=== PATIENT | female | born 1965 | race Caucasian/White ===

== ENCOUNTER → 2016-05-25 | Outpatient (CLI) | payer MEDICARE, MEDICAID ==
[~2016-05-25] MED LIST: ADVAIR 250/501 EA INH; ALBUTEROL0.09 MG/A2 IH; ALBUTEROL0.09 MG/A2 INH; ALBUTEROL0.63 MG/3; ALLERGY MED; AMOXICILLIN500 MG PO; AMOXIL250 MG/5 M PO; AMOXIL400 MG/5 M PO; AMOXIL500 MG PO; ATENOLOL-CHLORTHAL 5; AUGMENTIN 500 M1 TAB PO; AUGMENTIN ES-6050 ML PO; AUGMENTIN ES-6100 ML PO; BENADRYL; BENTYL10 MG PO; BREATHING TREATMENT; CIPRO500 MG PO; CIPRODEX 0.3%-7.5 ML OT; CLARITIN5 MG/5 ML PO; COMPAZINE10 MG PO; CYMBALTA60 M1 PO; DARVOCET N 1001 TAB PO; DIFLUCAN100 MG PO; FIORICET 325 MG1 TAB PO; FLEXERIL10 MG PO; HUMULIN SC; HYDR25T PO; HYDROCODONE BIT1 T11 PO; INSULIN 70/30 SC; IRON15 MG/1 ML PO; KEFLEX250 MG/5 M PO; KEFLEX500 MG PO; LEVAQUIN750 M1 PO; LEVAQUIN750 MG PO; LIDEX 0.05% CRE15 GM T; LISINOPRIL10 M1 PO; LISINOPRIL10 MG PO; LISINOPRIL40 MG PO; LISINOPRIL5 MG PO; MACROBID100 M1 PO; MIRALAX POWDER17 G1 PO; MOTRIN600 MG PO; MOTRIN800 MG PO; Motrin,Rufen800 MG PO; NORVASC2.5 MG PO; NORVASC5 MG PO; NOVOLOG 70/30 M10 ML SC; Nizoral 2%15 GM PO; OMNICEF250 MG/5 M PO; ORASONE20 MG PO; PEPCID20 MG PO; PHENERGAN25 M1 PO; PREDNISONE10 MG PO; PREDNISONE20 MG PO; PRELONE15 MG/5 ML; PRILOSEC20 MG PO; PRILOSEC40 M1 PO; PRILOSEC40 MG PO; PROAIR HFA0.09 MG/AC IH; Phenergan25 MG PO; ROBITUSSIN DM 101 OZ PO; ROBITUSSIN DM 105 ML PO; SUDAFED CH PO; SYMBICORT1 AE1 IH; TRAMADOL HCL50 MG PO; TRIMOX,POL250 MG/5 M PO; TUSSIN DM; TYLENOL160 MG/5 M PO; TYLENOL500 MG PO; ULTRAM50 MG PO; VENTOLIN 02.5 MG/3 M INH; VICODIN 5/500 505 MG PO; Vicodin 5/500 505 MG PO; ZANTAC150 MG PO; ZITHROMAX Z PA250 MG PO; ZOFRAN ODT4 MG PO; ZOFRAN ODT4 MG SL; ZOFRAN4 MG PO; ZOLOFT50 MG PO
--- NOTE | ~2016-05-25 | PR ---
[place], [place] PROGRESS NOTE NAME: ZAYRA MOTT [facility] #: [id number] UNIT #: [id number] ROOM: DOCTOR: GAVIN AugusteASAEL BIRTHDATE: [birth year] DOS: 05/25/2016 This is a patient who comes in for a chief complaint of an open area of her right lower extremity. HISTORY OF PRESENT ILLNESS: This is a 51-year-old female who has been to the [facility]ound Clinic before approximately about a year ago for ulcers of her legs. She comes in today accompanied by her boyfriend for a wound that she has had for approximately about a week of her right lower extremity on the lateral aspect of the leg. According to the patient and her boyfriend, it started out as a blister and she has been putting some dressing on it. She is not quite clear what they were using. Apparently, she says they got something from the pharmacy and were using some kind of antibiotic cream, but they really are not sure what it was. Her mom apparently lives with her and her mother apparently did put a dressing at one point, but she is not sure what it was. She is a very poor historian. PAST MEDICAL HISTORY: Significant for [id number] renal failure, anemia, arthritis, hypertension, severe ichthyosis and scaling of bilateral lower extremities, diabetes mellitus, obesity, severe malnutrition. PAST SURGICAL HISTORY: She is status post hand surgery, hip surgery, bilateral hip replacement, cholecystectomy. SOCIAL HISTORY: Does not drink alcohol. She is a past smoker. FAMILY HISTORY: Significant for hypertension and cirrhosis. ALLERGIES: To BEES, SULFA, ALPRAZOLAM, CODEINE, ERYTHROMYCIN, NAPROSYN, SERTRALINE, OPIOIDS and MORPHINE. MEDICATIONS: Lisinopril 40 daily, albuterol 2 puffs every 4 hours, Symbicort b.i.d., NovoLog 70/30, 40 units daily, iron sulfate 325 daily, and omeprazole 40 daily. She is a very poor historian. She offers no other specific complaints regarding the wound at this time. PHYSICAL EXAMINATION: VITAL SIGNS: Blood pressure is 130/88, pulse of 18, respirations 18, temperature is 98.6. WOUND EXAMINATION: Her legs are covered with diffuse thickened scales and she has dirt present on her feet and severe onychomycosis. Nails are extremely long. She would not agree to an YOU as she is unable to lay flat. I am able to, however, feel pulses of her right lower extremity, although it is somewhat difficult to feel. Her toes are slightly cool. There is capillary refill noted. She does have indurated edema in both of her lower extremities. Overall, hygiene is quite poor. The patient appears quite older than her stated age and has multiple teeth missing. There is an open wound present that has some foreign material present in the base of the wound that appears to be a [place], [place] PROGRESS NOTE NAME: ZAYRA MOTT UNIT #: [id number] ROOM: DOCTOR: ASAEL ALONSO M.D. BIRTHDATE: [birth year] dressing. The length is measuring 6, the width is 5.8, the depth is 0.1. There is a very minimal fibrin slough, but there is a lot of debris present in the base of the wound from this dressing which to me appears to be an alginate. The fibers are stuck in the wound. It is quite tender whenever attempting to even just examine the wound. The patient is not very cooperative with examination nor does she allow any extensive debridement. There is some surrounding erythema. It is mild, but the patient does complain of tenderness around the periwound as well, it is very mild. Some of the scales are once again noted as before. When I had seen her a year ago, these scales come off quite easily with washing her legs and they also are easily debrided off as well. I do not appreciate any other open wounds. She did agree to let me try to remove some of the foreign material with forceps. This was done very slowly over many, many minutes and several timeouts in between due to the patient's level of comfort repeated. Cetacaine spray was used for topical anesthesia. There was no bleeding. This is just a selective debridement to remove foreign material from the base of the wound. Post-debridement measurements are unchanged. ASSESSMENT AND PLAN: Ulcer of the right lower extremity secondary to probable edema. According to the patient, it started out as a blister and then opened up. It looks like they have been using an adherent type of dressing that has definitely adhered to the base of the wound that is causing discomfort and pain. There may be some slight cellulitis noted as well as there is a minimal tender erythema around the periwound as well. We will start the patient empirically on doxycycline 100 twice a day. She is not allergic to this medication. We will use Adaptic and honey to the base of the wound to help keep it clear from debris and Adaptic to help prevent any dressings from adhering to the base of the wound. The patient would not let us do ABIs today. When I had seen her in the past, arterial ultrasounds were ordered; however, the patient did not get this testing done. I did explain to her how important it is to have good personal hygiene and washing her legs is very important. Due to the discomfort with her wound, she refused to wash her legs upon arrival to the Wound Clinic today. I do not know if this patient will be able to care for her wound. She says her boyfriend will help her. However, she does seem to have some possible mental disability. She is on disability. I would like to have home health to try to come and help her with her dressings and to encourage good hygiene; however, she states that home health had refused to come to her house in the past due to pediculosis. We will see what we can do from our end. In the meantime, we will have the patient follow up in 1 week. She is diabetic, I do not know what her last hemoglobin A1c is. I will see if I can look this up. The patient has multiple medical problems, but does seem to be capable of making her own decision. She was able to call and make an appointment to come to the Wound Clinic today. Followup is in 1 week. [place], [place] PROGRESS NOTE NAME: ZAYRA MOTT [place] UNIT #: [id number] ROOM: DOCTOR: ASAEL ALONSO M.D. BIRTHDATE: [birth year] ASAEL ALONSO MD CM:PNTRANS [id number] ASAEL ALONSO M.D. 05/26/16 0942 interface
== END ==
LOC: WOUNDCARE 03:51
DX: E11.622 Type 2 diabetes mellitus with other skin ulcer (principal); L97.811 Non-pressure chronic ulcer of other part of right lower leg limited to breakdown of skin; I87.2 Venous insufficiency (chronic) (peripheral); M19.90 Unspecified osteoarthritis, unspecified site; E11.22 Type 2 diabetes mellitus with diabetic chronic kidney disease; I12.9 Hypertensive chronic kidney disease with stage 1 through stage 4 chronic kidney disease, or unspecified chronic kidney disease; N18.9 Chronic kidney disease, unspecified; B35.1 Tinea unguium; E66.9 Obesity, unspecified; Z90.49 Acquired absence of other specified parts of digestive tract; Z87.891 Personal history of nicotine dependence

== ENCOUNTER 2016-07-23 19:53 | Inpatient (IN) | payer MEDICARE, MEDICAID ==
[~2016-07-23] VITALS: Ht 165.1 cm; Wt 119.8 kg
[2016-07-23 20:01] VITALS: BP 132/85
[2016-07-23 20:18] LABS: BASO # 0.1 10*3/uL (0.0-0.1); EOS # 0.3 10*3/uL (0.0-0.4); HEMOGLOBIN 8.9 g/dl (12.0-16.0); MEAN CELL VOLUME 84.8 fl (81.0-99.0); MEAN CORPUSCULAR HGB CONC 30.7 g/dl (33.0-37.0); MONO # 0.5 10*3/uL (0.1-1.0); MONO % 7.4 % (3.0-9.0); NEUT # 4.2 10*3/uL (2.3-7.9); NEUT % 69.3 % (47.0-73.0); PLATELET COUNT AUTOMATED 284 10*3/uL (130-400); RED BLOOD COUNT 3.42 10*6/uL (4.10-5.10); RED CELL DISTRI WIDTH 15.9 % (0-14.5); WHITE BLOOD COUNT 6.1 10*3/uL (4.8-10.8)
[2016-07-23 20:28] LABS: INTERNATIONAL NORM RATIO 1.1 (2.0-3.5); PROTHROMBIN TIME 11.3 SECONDS (9.0-12.4)
[2016-07-23 20:34] LABS: ALBUMIN 2.2 gm/dl (3.1-4.5); ALKALINE PHOSPHATASE 114 U/L (45-117); BILIRUBIN, TOTAL 0.2 mg/dl (0.2-1.0); BUN 29 mg/dl (7-24); CARBON DIOXIDE 22 mmol/L (21-32); CHLORIDE 109 mmol/L (98-107); CPK 141 U/L (26-192); EST GLOM FILT AFRICAN AMERICAN 29 ml/min; GLUCOSE 159 mg/dL (65-99); MAGNESIUM 3.4 mg/dL (1.5-2.1); SGOT/AST 6 IU/L (3-35); SGPT/ALT 16 U/L (12-78); SODIUM 140 mmol/L (136-145); TOTAL PROTEIN 6.3 gm/dL (6.4-8.2)
[2016-07-23 20:35] LABS: TROPONIN I < 0.015 ng/ml (<0.045)
[2016-07-23 20:36] LABS: CKMB 5.7 ng/ml (0.5-3.6)
[2016-07-23 21:10] VITALS: BP 170/98
[2016-07-23 23:19] VITALS: BP 188/99
[2016-07-23] MEDS ORDERED: IRON325 M2 PO (23:59)
[2016-07-23] MEDS ORDERED: HYDRALAZINE HYD50 MG PO (23:59)
[2016-07-24] VITALS: BP 180/92
[2016-07-24] MEDS ORDERED: VITAMIN D1000 IU PO
[2016-07-24 04:00] VITALS: BP 178/76
[2016-07-24] MEDS ORDERED: PROCARDIA XL30 MG PO (07:13)
[2016-07-24] MEDS ORDERED: CATAPRES0.2 M1 PO (07:14)
[2016-07-24] MEDS ORDERED: PHENERGAN12.5 M2 RC (07:15)
[2016-07-24 07:51] LABS: BASO # 0.1 10*3/uL (0.0-0.1); BASO % 1.3 % (0.0-1.0); EOS # 0.3 10*3/uL (0.0-0.4); EOS % 4.3 % (1.0-4.0); HEMATOCRIT 29.3 % (37.0-47.0); HEMOGLOBIN 9.2 g/dl (12.0-16.0); LYMPH # 1.3 10*3/uL (1.3-4.4); LYMPH % 20.6 % (27.0-41.0); MEAN CELL VOLUME 84.2 fl (81.0-99.0); MEAN CORPUSCULAR HGB 26.4 pg (27.0-31.0); MEAN CORPUSCULAR HGB CONC 31.4 g/dl (33.0-37.0); MEAN PLATELET VOLUME 8.3 fl (9.6-12.3); MONO # 0.6 10*3/uL (0.1-1.0); NEUT % 64.5 % (47.0-73.0); PLATELET COUNT AUTOMATED 293 10*3/uL (130-400); RED BLOOD COUNT 3.48 10*6/uL (4.10-5.10); WHITE BLOOD COUNT 6.3 10*3/uL (4.8-10.8)
[2016-07-24 07:59] LABS: INTERNATIONAL NORM RATIO 1.1 (2.0-3.5); PROTHROMBIN TIME 11.3 SECONDS (9.0-12.4)
[2016-07-24 08:00] VITALS: BP 190/108
[2016-07-24 08:08] LABS: ALBUMIN 2.2 gm/dl (3.1-4.5); BILIRUBIN, TOTAL 0.3 mg/dl (0.2-1.0); MAGNESIUM 3.2 mg/dL (1.5-2.1); POTASSIUM 4.4 mmol/L (3.5-5.1); TOTAL PROTEIN 6.2 gm/dL (6.4-8.2)
[2016-07-24 08:09] LABS: FREE T4 0.76 ng/dl (0.76-1.46)
[2016-07-24 08:14] LABS: THYROID STIM HORMONE (HS) 1.73 uIU/ml (0.358-4.75)
[2016-07-24 08:27] LABS: HEMOGLOBIN A1c 6.3 % (4.8-5.6)
[2016-07-24 09:49] LABS: VITAMIN D, 25-HYDROXY 18.2 ng/mL (30-100)
[2016-07-24 09:50] LABS: FOLIC ACID 2.15 ng/mL (>5.38)
[2016-07-24] MEDS ORDERED: PROCARDIA10 MG PO (10:53)
== END 2016-07-24 13:22 | disposition home or self-care (01) | DRG 391 ==
LOC: ED 19:53 → EDHOLD 22:32 → 5E 22:43
PROVIDERS: Emergency Medicine; Internal Medicine Hospice and Palliative Medicine
DX: K21.9 Gastro-esophageal reflux disease without esophagitis (principal); E43 Unspecified severe protein-calorie malnutrition; N18.4 Chronic kidney disease, stage 4 (severe); Z68.41 Body mass index [BMI] 40.0-44.9, adult; F41.9 Anxiety disorder, unspecified; R07.89 Other chest pain; I12.9 Hypertensive chronic kidney disease with stage 1 through stage 4 chronic kidney disease, or unspecified chronic kidney disease; E11.22 Type 2 diabetes mellitus with diabetic chronic kidney disease; E66.9 Obesity, unspecified; I87.2 Venous insufficiency (chronic) (peripheral); E55.9 Vitamin D deficiency, unspecified; E53.8 Deficiency of other specified B group vitamins; D64.9 Anemia, unspecified; J44.9 Chronic obstructive pulmonary disease, unspecified; M19.90 Unspecified osteoarthritis, unspecified site; Z96.643 Presence of artificial hip joint, bilateral; Z90.49 Acquired absence of other specified parts of digestive tract; Z82.49 Family history of ischemic heart disease and other diseases of the circulatory system; Z83.3 Family history of diabetes mellitus; Z79.4 Long term (current) use of insulin; Z88.2 Allergy status to sulfonamides; Z88.6 Allergy status to analgesic agent; Z88.8 Allergy status to other drugs, medicaments and biological substances; Z91.018 Allergy to other foods; Z79.899 Other long term (current) drug therapy

== ENCOUNTER 2016-08-19 10:28 | Emergency (ER) | payer MEDICARE, MEDICAID ==
[~2016-08-19] VITALS: Ht 160 cm; Wt 113.4 kg
[2016-08-19 10:43] VITALS: BP 174/92
== END 2016-08-19 10:52 | disposition home or self-care (01) ==
LOC: ED 10:28
DX: S00.83XA Contusion of other part of head, initial encounter (principal); I10 Essential (primary) hypertension; F41.9 Anxiety disorder, unspecified; E11.9 Type 2 diabetes mellitus without complications; J44.9 Chronic obstructive pulmonary disease, unspecified; E66.9 Obesity, unspecified; Z88.6 Allergy status to analgesic agent; Z88.2 Allergy status to sulfonamides; Z88.8 Allergy status to other drugs, medicaments and biological substances; Z91.018 Allergy to other foods; Z79.899 Other long term (current) drug therapy; Z68.42 Body mass index [BMI] 45.0-49.9, adult; W07.XXXA Fall from chair, initial encounter; Y93.89 Activity, other specified; Y92.89 Other specified places as the place of occurrence of the external cause; Y99.8 Other external cause status

== ENCOUNTER → 2016-08-19 | Outpatient (CLI) | payer MEDICARE, MEDICAID ==
[~2016-08-19] MED LIST changes: +CATAPRES0.2 M1 PO; +HYDRALAZINE HYD50 MG PO; +IRON325 M2 PO; +PHENERGAN12.5 M2 RC; +PROCARDIA XL30 MG PO; +PROCARDIA10 MG PO; +VITAMIN D1000 IU PO
== END | disposition home or self-care (01) ==
LOC: US 07:20
DX: K76.0 Fatty (change of) liver, not elsewhere classified (principal); I10 Essential (primary) hypertension; Z90.49 Acquired absence of other specified parts of digestive tract

== ENCOUNTER 2016-08-22 15:26 | Inpatient (IN) | payer MEDICARE, MEDICAID ==
[~2016-08-22] VITALS: Ht 162.5 cm; Wt 111.3 kg
--- NOTE | ~2016-08-22 | PR ---
[place], [place] [id number] #: [id number] ROOM: 530 DOCTOR: MARISSA WEBB MD BIRTHDATE: [birth year] DOS: 08/27/2016 NEPHROLOGY PROGRESS NOTE SUBJECTIVE: No reported events overnight. No reports of acute chest pain, tolerating by mouth well. OBJECTIVE: VITAL SIGNS: 97.9, 81, 20, 144/83, and 96%. GENERAL: Older appearing in her stated age, morbidly obese, sitting at the side of the bed. Chronic lower extremity edema with elephantiasis and chronic skin changes. Chronic edema of the lower extremities are stable and slightly improved compared to admission. LUNGS: Decreased secondary to effort. CARDIOVASCULAR: Rate regular. No audible rub. ABDOMEN: Obese, soft, nontender. LABORATORY DATA AND DIAGNOSTICS: White blood cell count 5.5, hemoglobin 8.2, still not robust. She has been given transfusions on the and the of one unit each day. She was stable at 8.8 yesterday after transfusion, but dropped again to 8.2, was noted above. Platelets are 215 and holding. Sodium 139, potassium 5.0, chloride 108, bicarbonate 23, BUN 40, creatinine 2.15 fairly stable, glucose 76, calcium 7.6, phosphorus 5.0, magnesium 1.8, and albumin 1.7, chronically runs low. We had to add on a urine creatinine to her 24 hours sample as it was not run. Only the protein was run. The total protein came back at 4.7 grams and creatinine clearance came back at 9.6 mL per minute, both are significantly abnormal. Unfortunately, I think that the collection was inadequate as she had some incontinence episodes. Despite a volume of 2.1 liters, she likely had somewhere closer to 2500 at least. Her urine concentration is very low and total creatinine excretion in whatever was collected was only 321 mg. Despite her weight of over 111 kilograms and to a BMI of over 42. I suspect she has significant sarcopenia because of chronic debility and decreased nutrition. While her creatinine clearance does point to a level of stage V chronic kidney disease, I believe a more accurate collection would yield a GFR somewhere around 15-20 with her current creatinine, may be as low as 10; however, at this point, she does not require acute initiation of dialysis. Her serologic tests for proteinuria included protein and urine electrophoresis and immunofixation, both of which were unremarkable for a monoclonal spike. It is almost certainly diabetic related disease. She had very poor control in her earlier life and has just recently, under much better control of her diabetes, her hypertension has remained a challenge and her volume control also remains a challenge. PLAN: I recommended that she continue follow up with her primary sql database developer as an outpatient and consider early creation of an AV fistula as she is almost undoubtedly going to progress to end-stage renal disease. Hyperphosphatemia, hyperparathyroidism, and hyperkalemia all should be manageable for now; however, dietary restrictions have been very challenging in this patient. I suspect she has some autism spectrum disorder, but further evaluation may be recommended by the primary doctor as well. Close follow up post-discharge would be [place], [place] [id number] UNIT #: [id number] ROOM: 530 DOCTOR: MARISSA WEBB MD BIRTHDATE: [birth year] recommended, but from a renal standpoint there are no more acute changes I have to make at this point. MARISSA WEBB MD CM:ADDISON [phone] MARISSA WEBB MD 08/28/16 0136 interface
--- NOTE | ~2016-08-22 | PR ---
[place], [place] PROGRESS NOTE NAME: ZAYRA MOTT [facility] #: [id number] UNIT #: [id number] ROOM: 530 DOCTOR: GRAHAM SANCHES MD BIRTHDATE: [birth year] DOS: 08/25/2016 CARDIOLOGY FOLLOWUP NOTE SUBJECTIVE: The patient was seen at her bedside today 08/25/2016, for followup of her fluid overload and diastolic dysfunction. She is a 51-year-old woman with a history of diabetes and significant proteinuria. It is most likely that she does have diabetic nephropathy with nephrotic syndrome. She was admitted with dyspnea and fluid overload. Initially, she responded nicely to loop diuretics; however, in the last 24 hours, her urine output appears to have decreased. Renal functions are stable, but depressed. Her BUN and creatinine are 33 and 1.92 respectively. Her weight is going up. This is despite the fact that she is on 80 mg of furosemide IV twice a day. Cardiac evaluation included an echocardiogram, which demonstrated normal left ventricular systolic function with severely impaired diastolic function. PHYSICAL EXAMINATION: GENERAL: She is an overweight white female, who is rocking on her bedside. VITAL SIGNS: Pulse is 80 and regular, blood pressure is 158/60. She is afebrile. She weighs 115.3 kilograms with a body mass index of 43.7. NECK: Supple. She does have jugular distention with hepatojugular reflux. Carotids are full. LUNGS: Respirations are unlabored at rest. She does have some tenderness on her left flank. Her lungs have decreased breath sounds at the bases. She has no wheezes or rales. HEART: Has a regular rhythm with an S4 gallop. ABDOMEN: Obese. EXTREMITIES: Show dramatic stasis changes with thickening of the skin bilaterally. IMPRESSION: 1. Acute on chronic congestive heart failure due to diastolic dysfunction and renal insufficiency. 2. Hypertension. 3. Diabetes. 4. Chronic renal insufficiency, stage 4. 5. Probable nephrotic range proteinuria. 6. Severe protein-calorie malnutrition. PLAN: For now, I will increase her diuretics. Nephrology evaluation is pending. Once they have seen her, I will defer to their judgment regarding the intensity of diuretic therapy. No other cardiac workup is planned at this time. I thank the hospitalist physicians for asking our advice regarding her care. [place], [place] PROGRESS NOTE NAME: ZAYRA MOTT UNIT #: [id number] ROOM: 530 DOCTOR: GRAHAM SANCHES MD BIRTHDATE: [birth year] GRAHAM SANCHES MD CM:PNTRANS [phone] GRAHAM SANCHES MD 08/26/16 0246 interface
--- NOTE | ~2016-08-22 | WRIGHTHP ---
[place], [place] PATIENT HISTORY AND PHYSICAL EXAM NAME: ZAYRA MOTT [facility] #: [id number] UNIT #: [id number] ROOM: 530 DOCTOR: LISA RUIZ DO BIRTHDATE: [birth year] DOS: 08/23/2016 PRIMARY CARE PHYSICIAN: Dr. Reed. The patient was seen and evaluated with the resident on 08/23/2016. Please see the resident's note for further details. ASSESSMENT: 1. Acute heart failure, unknown if systolic versus diastolic at this time. 2. Acute renal failure with history of chronic kidney disease stage 3. 3. Hyperkalemia. 4. Acute on chronic anemia, 1 unit of packed red blood cells have been transfused. 5. Recent fall resulting in contusion of the left ribs. 6. Diabetes mellitus. 7. Asthma. 8. Hypertension. 9. Ex-smoker. 10. Anxiety. 11. Depression. 12. Obesity. 13. Last echocardiogram in 09/2014 measured a normal ejection fraction. PLAN: Continue diuresis with IV Lasix. Cardiology has been consulted. An echocardiogram has been ordered. Nephrology has also been consulted for the acute renal failure. Rib x-rays were ordered; however, the patient is currently refusing to have these images taken. LISA RUIZ DO CM:HISPHYS:PATIENT HISTORY AND PHYSICAL EXAMINATION [id number] LISA RUIZ DO 08/23/16 1307 interface
--- NOTE | ~2016-08-22 | PR ---
[place], [place] PROGRESS NOTE [id number]IT #: [id number] ROOM: 530 DOCTOR: STEPHANI GIBBS MD BIRTHDATE: [birth year] DOS: 08/28/2016 NEPHROLOGY FOLLOWUP NOTE SUBJECTIVE: The patient was seen and examined. She is awake and alert. She hopes to go home. She stated she wanted her IV out. She wanted to take a shower. She denies shortness of breath, nausea or vomiting. PHYSICAL EXAMINATION: VITAL SIGNS: Temperature 97.5, pulse 86, respiratory rate 18, blood pressure 153/58. HEENT: Shows no JVD. Mucous membranes appear dry. LUNGS: Diminished breath sounds. No wheeze. HEART: Normal S1, S2. No rub, thrill or gallop. ABDOMEN: Soft, nontender. There is no organomegaly. EXTREMITIES: Had 1+ edema. LABORATORY DATA: Hemoglobin 9.4, white count is 7.2, platelets 267, BUN 42, creatinine 2.36, calcium 8.3, phosphorus 5.1, albumin 2.1, sodium 138, potassium is 5.1. IMPRESSION: 1. Chronic kidney disease stage 3-4. The patient has had fluctuating creatinine levels, but overall fairly stable. Continue ongoing supportive care. She will need to follow up with her fan blade truer, Dr. Pak once discharged. 2. Anemia. Follow H and H. Consider outpatient erythropoietin stimulating agents. 3. Diabetes mellitus. On insulin. 4. Edema/congestive heart failure. IV diuretics continue. She will need to switch to oral agents on discharge. 5. Hyperphosphatemia. This is mild. Placed the patient on a potassium and phosphorus restriction. She may require binders if trends continue to worsen. STEPHANI GIBBS MD CM:PNTRANS [phone] STEPHANI GIBBS MD 08/29/16 0902 interface
--- NOTE | ~2016-08-22 | CON ---
[place], [place] REPORT OF CONSULTATION NAME: ZAYRA MOTT UNIT #: [id number] ROOM: 530 DOCTOR: KSENIA GONZALEZJIMMY BIRTHDATE: [birth year] DOS: 08/29/2016 PODIATRY CONSULTATION SUBJECTIVE: This 51-year-old white female is seen for diabetic nail care on both feet. She states she has been diabetic for many years. She has a history of some leg issues for which she [facility] here [facility] the hospital. PAST MEDICAL HISTORY: Positive for CHF, hyperkalemia, insulin-dependent diabetes mellitus, hypertension, chronic renal disease stage 4, COPD, ichthyosis, arthritis, vitamin D deficiency, normocytic anemia, morbid obesity, anxiety, severe protein malnutrition. ALLERGIES: SULFA, ALPRAZOLAM, CODEINE. MEDICATIONS: Include Lasix, vitamin D, Humulin, Feosol, Apresoline, Catapres, Lac-Hydrin, Dulera, [place], heparin, folic acid. PHYSICAL EXAMINATION: Upon lower extremity physical examination, DP pedal pulses are palpable and PT pedal pulses are barely palpable. CFT is 2 seconds to all digits. Skin temperature is warm. There is more chronic dependent edema noted bilaterally with brawny edema and dry skin. Sensation appears minimally decreased in the forefoot bilaterally. Muscle strength does appear full without any deficits. Nails 1 through 5 bilaterally are extremely elongated, thick, brittle, dystrophic with subungual debris present. Left great toenail is loose, but there is no open wound noted. There are no ulcerations noted on either foot, no erythema or increased temperature. Contracted lesser digits are seen. ASSESSMENT: Chronic venous insufficiency with dependent edema bilaterally, diabetes mellitus, onychomycosis 1 through 5 bilaterally with mild peripheral arterial disease. PLAN: Consult is performed. Discussed proper diabetic foot care with the patient. Manual debridement of mycotic nails 1 through 5 bilaterally in length and thickness to the level of the nail bed to reduce hazards such as an infection. Discussed about continuing to follow up the [facility] for legs. Recommend reevaluation in 9 weeks for diabetic foot care. Thank you for the opportunity to take part in care of this patient. [place], [place] REPORT OF CONSULTATION NAME: TIERAZAYRA Antunez UNIT #: [id number] ROOM: [facility] DOCTOR: JIMMY MCCORMACK DPM BIRTHDATE: [birth year] JIMMY MCCORMACK DPM CM:CONSTR:REPORT OF CONSULTATION 1202 08/30/16 0527 interface
--- NOTE | ~2016-08-22 | EKG ---
[place], [place] ELECTROCARDIOGRAM REPORT NAME: ZAYRA MOTT UNIT #: [id number] ROOM: [facility] DOCTOR: GRAHAM SANCHES MD BIRTHDATE: [birth year] DOS: 08/22/2016 TIME: 1712 FINDINGS: Normal sinus rhythm. Low voltage in limb leads. Poor precordial R-wave progression. Borderline electrocardiogram. GRAHAM SANCHES MD CM:EKGRPT:ELECTROCARDIOGRAM REPORT [id number] GRAHAM SANCHES MD
--- NOTE | ~2016-08-22 | PR ---
[place], [place] PROGRESS NOTE NAME: ZAYRA MOTT [facility] #: [id number] UNIT #: [id number] ROOM: 530 DOCTOR: GRAHAM SANCHES MD BIRTHDATE: [birth year] DOS: 08/26/2016 CARDIOLOGY PROGRESS NOTE SUBJECTIVE: The patient was seen at her bedside today on 08/26/2016, with family and friends in attendance. We were asked to see her for followup of fluid overload and diastolic dysfunction. She is a 51-year-old woman with a history of diabetes, hypertension and significant proteinuria. She was admitted with dyspnea and fluid overload. She has required large doses of loop diuretics in order to assure a good diuresis. Currently, she is on 80 mg of furosemide intravenously every 8 hours and is starting to lose water. She is breathing better today and states that she feels generally better. She still has a variety of complaints, but she seems to be making progress. An echocardiogram done this admission showed normal left ventricular systolic function with severely impaired diastolic function. PHYSICAL EXAMINATION: GENERAL: Reveals an overweight white female who is awake, alert and oriented. VITAL SIGNS: Pulse is 89 and regular, blood pressure is 164/88. She is afebrile. She weighs 110.4 kilograms with a body mass index of 41.8. HEENT: Normocephalic, atraumatic. She does have healing wounds to her face from a recent fall. NECK: Supple. There is no jugular distention. Carotids are full. LUNGS: Respirations are unlabored. Her chest has decreased breath sounds at the bases, but is otherwise clear. There are no wheezes or rales. HEART: Has a regular rhythm with an S4 gallop, but no S3 or significant murmur. ABDOMEN: Obese, but otherwise benign. EXTREMITIES: Show marked stasis changes with thickening of the skin bilaterally. LABORATORY DATA: Hemoglobin after transfusion is 8.8 with a white count of 6000, platelet count 240,000. Sodium is 140, potassium 4.8, chloride 111, CO2 is 22, BUN 37, creatinine 1.99. Total protein is low at 5.4 with an albumin level of 1.8. Her urine protein is of 4.7 grams per 24 hours. IMPRESSION: 1. Acute on chronic congestive heart failure due to diastolic dysfunction, exacerbated by renal insufficiency. 2. Hypertension. 3. Diabetes. 4. Chronic renal insufficiency, stage 4. 5. Severe proteinuria due to diabetic kidney disease. 6. Severe protein calorie malnutrition. PLAN: No other cardiac workup or change in management is planned at this time. We will defer further diuresis to her Nephrology consultants. We thank the hospitalist physicians for asking our advice regarding her care. At this point, we will sign off, but we will remain available to help as needed. [place], [place] PROGRESS NOTE NAME: ZAYRA MOTT UNIT #: [id number] ROOM: 530 DOCTOR: GRAHAM SANCHES MD BIRTHDATE: [birth year] GRAHAM SANCHES MD CM:PNTRANS [id number] GRAHAM SANCHES MD 08/27/16 1248 interface
[~2016-08-22 15:26] MED LIST changes: +PHENERGAN12.5 M2 PO; -PHENERGAN12.5 M2 RC
[2016-08-22 15:40] VITALS: BP 132/66
[2016-08-22 17:18] LABS: BASO # 0.1 10*3/uL (0.0-0.1); BASO % 0.8 % (0.0-1.0); EOS # 0.5 10*3/uL (0.0-0.4); EOS % 5.4 % (1.0-4.0); HEMATOCRIT 23.9 % (37.0-47.0); HEMOGLOBIN 7.3 g/dl (12.0-16.0); IG # 0.1 10*3/uL (0.0-0.1); LYMPH % 12.3 % (27.0-41.0); MEAN CELL VOLUME 87.2 fl (81.0-99.0); MEAN CORPUSCULAR HGB 26.6 pg (27.0-31.0); MEAN CORPUSCULAR HGB CONC 30.5 g/dl (33.0-37.0); MEAN PLATELET VOLUME 8.9 fl (9.6-12.3); MONO # 0.6 10*3/uL (0.1-1.0); MONO % 6.8 % (3.0-9.0); NEUT # 6.2 10*3/uL (2.3-7.9); PLATELET COUNT AUTOMATED 280 10*3/uL (130-400); RED BLOOD COUNT 2.74 10*6/uL (4.10-5.10); WHITE BLOOD COUNT 8.4 10*3/uL (4.8-10.8)
[2016-08-22 17:34] LABS: ALBUMIN 2.1 gm/dl (3.1-4.5); ALKALINE PHOSPHATASE 129 U/L (45-117); BILIRUBIN, TOTAL 0.2 mg/dl (0.2-1.0); BUN 36 mg/dl (7-24); CARBON DIOXIDE 19 mmol/L (21-32); CHLORIDE 109 mmol/L (98-107); CPK 104 U/L (26-192); EST GLOM FILT AFRICAN AMERICAN 25 ml/min; GLUCOSE 181 mg/dL (65-99); LDH 258 U/L (84-246); MAGNESIUM 2.9 mg/dL (1.5-2.1); POTASSIUM 5.5 mmol/L (3.5-5.1); SGOT/AST 13 IU/L (3-35); SGPT/ALT 16 U/L (12-78); SODIUM 137 mmol/L (136-145); TOTAL PROTEIN 6.2 gm/dL (6.4-8.2)
[2016-08-22 17:44] LABS: TROPONIN I < 0.015 ng/ml (<0.045)
[2016-08-22 17:45] LABS: CKMB 7.3 ng/ml (0.5-3.6)
[2016-08-22 17:53] VITALS: BP 157/77
[2016-08-22 20:54] LABS: BILIRUBIN NEGATIVE (NEGATIVE); BLOOD 1+ (NEGATIVE); CLARITY CLOUDY (CLEAR); COLOR YELLOW (YELLOW); GLUCOSE TRACE (NEGATIVE); KETONE NEGATIVE (NEGATIVE); LEUKO ESTERASE NEGATIVE (NEGATIVE); NITRITE NEGATIVE (NEGATIVE); PH 7.5 (5.0-9.0); PROTEIN 3+ (NEGATIVE); SPECIFIC GRAVITY 1.015 (1.005-1.030); UROBILINOGEN 0.2 E.U./dl (0.2-1.0)
[2016-08-22 21:14] LABS: EPITHELIAL CELLS 0-2; URINE REFLEX COMMENT YES (NO)
[2016-08-22 22:36] VITALS: BP 156/96
[2016-08-22 23:30] VITALS: BP 131/62
[2016-08-23] VITALS (8 sets, daily range): BP systolic 142–188; BP diastolic 82–96
[2016-08-23 00:59] LABS: CPK 117 U/L (26-192)
[2016-08-23 01:01] LABS: CKMB 6.8 ng/ml (0.5-3.6); TROPONIN I < 0.015 ng/ml (<0.045)
[2016-08-23 06:20] LABS: BASO # 0.1 10*3/uL (0.0-0.1); BASO % 0.8 % (0.0-1.0); EOS # 0.6 10*3/uL (0.0-0.4); EOS % 8.7 % (1.0-4.0); HEMATOCRIT 24.5 % (37.0-47.0); HEMOGLOBIN 7.7 g/dl (12.0-16.0); LYMPH # 1.3 10*3/uL (1.3-4.4); LYMPH % 19.2 % (27.0-41.0); MEAN CELL VOLUME 86.3 fl (81.0-99.0); MEAN CORPUSCULAR HGB 27.1 pg (27.0-31.0); MEAN CORPUSCULAR HGB CONC 31.4 g/dl (33.0-37.0); MEAN PLATELET VOLUME 8.7 fl (9.6-12.3); MONO # 0.6 10*3/uL (0.1-1.0); PLATELET COUNT AUTOMATED 239 10*3/uL (130-400); RED BLOOD COUNT 2.84 10*6/uL (4.10-5.10); RED CELL DISTRI WIDTH 16.6 % (0-14.5); WHITE BLOOD COUNT 6.5 10*3/uL (4.8-10.8)
[2016-08-23 06:37] LABS: ALBUMIN 1.9 gm/dl (3.1-4.5); BILIRUBIN, TOTAL 0.3 mg/dl (0.2-1.0); CPK 86 U/L (26-192); MAGNESIUM 2.8 mg/dL (1.5-2.1); PHOSPHOROUS 3.9 mg/dL (2.5-4.9); POTASSIUM 5.3 mmol/L (3.5-5.1); TOTAL PROTEIN 5.8 gm/dL (6.4-8.2)
[2016-08-23 06:38] LABS: FREE T4 0.87 ng/dl (0.76-1.46)
[2016-08-23 06:43] LABS: THYROID STIM HORMONE (HS) 1.7 uIU/ml (0.358-4.75)
[2016-08-23 06:56] LABS: CKMB 5.3 ng/ml (0.5-3.6)
[2016-08-23 06:57] LABS: TROPONIN I < 0.015 ng/ml (<0.045)
[2016-08-23 06:58] LABS: INTERNATIONAL NORM RATIO 1.1 (2.0-3.5); PROTHROMBIN TIME 11.5 SECONDS (9.0-12.4)
[2016-08-23 08:10] LABS: HEMOGLOBIN A1c 6.2 % (4.8-5.6)
[2016-08-23 08:23] LABS: VITAMIN D, 25-HYDROXY 22.1 ng/mL (30-100)
[2016-08-23 08:24] LABS: FOLIC ACID 1.21 ng/mL (>5.38)
[2016-08-24] VITALS (10 sets, daily range): BP systolic 142–164; BP diastolic 67–95
[2016-08-24 03:01] LABS: BILIRUBIN NEGATIVE (NEGATIVE); BLOOD 2+ (NEGATIVE); CLARITY CLEAR (CLEAR); COLOR YELLOW (YELLOW); GLUCOSE TRACE (NEGATIVE); KETONE NEGATIVE (NEGATIVE); LEUKO ESTERASE NEGATIVE (NEGATIVE); NITRITE NEGATIVE (NEGATIVE); PH 7.5 (5.0-9.0); PROTEIN 3+ (NEGATIVE); SPECIFIC GRAVITY 1.015 (1.005-1.030); UROBILINOGEN 0.2 E.U./dl (0.2-1.0)
[2016-08-24 03:12] LABS: URINE TP/CRE RATIO 14.4 (<0.21)
[2016-08-24 03:14] LABS: TRIP PHOS CRYSTALS 1+
[2016-08-24 03:15] LABS: RBC 21-30 rbc/hpf (0-2)
[2016-08-24 06:31] LABS: BASO # 0.1 10*3/uL (0.0-0.1); EOS # 0.5 10*3/uL (0.0-0.4); HEMATOCRIT 23.1 % (37.0-47.0); HEMOGLOBIN 7.2 g/dl (12.0-16.0); LYMPH # 1.2 10*3/uL (1.3-4.4); LYMPH % 19.6 % (27.0-41.0); MEAN CELL VOLUME 86.5 fl (81.0-99.0); MEAN CORPUSCULAR HGB CONC 31.2 g/dl (33.0-37.0); MEAN PLATELET VOLUME 8.8 fl (9.6-12.3); MONO # 0.5 10*3/uL (0.1-1.0); MONO % 8.4 % (3.0-9.0); NEUT # 3.7 10*3/uL (2.3-7.9); NEUT % 62.7 % (47.0-73.0); PLATELET COUNT AUTOMATED 249 10*3/uL (130-400); RED BLOOD COUNT 2.67 10*6/uL (4.10-5.10); RED CELL DISTRI WIDTH 16.7 % (0-14.5)
[2016-08-24 07:00] LABS: ALBUMIN 1.7 gm/dl (3.1-4.5); BILIRUBIN, TOTAL 0.3 mg/dl (0.2-1.0); MAGNESIUM 2.6 mg/dL (1.5-2.1); POTASSIUM 5.1 mmol/L (3.5-5.1); TOTAL PROTEIN 5.1 gm/dL (6.4-8.2)
[2016-08-25] VITALS: BP 146/72
[2016-08-25 06:44] LABS: BASO # 0.1 10*3/uL (0.0-0.1); BASO % 0.9 % (0.0-1.0); EOS # 0.5 10*3/uL (0.0-0.4); HEMATOCRIT 27.7 % (37.0-47.0); HEMOGLOBIN 8.8 g/dl (12.0-16.0); LYMPH # 1.1 10*3/uL (1.3-4.4); LYMPH % 19.8 % (27.0-41.0); MEAN CELL VOLUME 85.5 fl (81.0-99.0); MEAN CORPUSCULAR HGB 27.2 pg (27.0-31.0); MEAN CORPUSCULAR HGB CONC 31.8 g/dl (33.0-37.0); MEAN PLATELET VOLUME 8.8 fl (9.6-12.3); MONO # 0.5 10*3/uL (0.1-1.0); NEUT # 3.6 10*3/uL (2.3-7.9); PLATELET COUNT AUTOMATED 253 10*3/uL (130-400); RED BLOOD COUNT 3.24 10*6/uL (4.10-5.10); RED CELL DISTRI WIDTH 16.3 % (0-14.5); WHITE BLOOD COUNT 5.8 10*3/uL (4.8-10.8)
[2016-08-25 07:12] LABS: ALBUMIN 1.7 gm/dl (3.1-4.5); BILIRUBIN, TOTAL 0.3 mg/dl (0.2-1.0); MAGNESIUM 2.5 mg/dL (1.5-2.1); POTASSIUM 4.8 mmol/L (3.5-5.1); TOTAL PROTEIN 5.1 gm/dL (6.4-8.2)
[2016-08-25 08:00] VITALS: BP 158/60
[2016-08-25 12:00] VITALS: BP 152/88
[2016-08-25 16:00] VITALS: BP 159/81
[2016-08-25 16:12] LABS: ALBUMIN, URINE RANDOM 59.8 % (.); ALPHA-1-GLOBULIN, URINE 7.9 % (.); GAMMA GLOBULIN, URINE 14.9 % (.); M-SPIKE % Not Observed % (Not Observed); PROTEIN,TOTAL - URINE RANDOM 347.9 mg/dL (Not Estab.)
[2016-08-25 17:14] LABS: A/G RATIO 0.8 (0.7-1.7); ALPHA-1-GLOBULIN 0.3 g/dL (0.0-0.4); BETA GLOBULIN 0.7 g/dL (0.7-1.3); GAMMA GLOBULIN 0.9 g/dL (0.4-1.8); GLOBULIN, TOTAL 2.6 g/dL (2.2-3.9); M-SPIKE Not Observed g/dL (Not Observed); TOTAL PROTEIN, SERUM 4.6 g/dL (6.0-8.5)
[2016-08-25 17:54] LABS: URINE TOTAL PROTEIN CONC 225.1 mg/dL (<11.9)
[2016-08-25 20:49] VITALS: BP 132/72
[2016-08-26] VITALS: BP 163/75
[2016-08-26 07:04] LABS: BASO # 0.1 10*3/uL (0.0-0.1); EOS # 0.5 10*3/uL (0.0-0.4); EOS % 8.8 % (1.0-4.0); HEMATOCRIT 28.2 % (37.0-47.0); HEMOGLOBIN 8.8 g/dl (12.0-16.0); LYMPH % 16.1 % (27.0-41.0); MEAN CELL VOLUME 86.5 fl (81.0-99.0); MEAN CORPUSCULAR HGB CONC 31.2 g/dl (33.0-37.0); MEAN PLATELET VOLUME 8.9 fl (9.6-12.3); MONO # 0.6 10*3/uL (0.1-1.0); MONO % 10.3 % (3.0-9.0); NEUT # 3.8 10*3/uL (2.3-7.9); NEUT % 63.5 % (47.0-73.0); PLATELET COUNT AUTOMATED 240 10*3/uL (130-400); RED BLOOD COUNT 3.26 10*6/uL (4.10-5.10); RED CELL DISTRI WIDTH 16.4 % (0-14.5)
[2016-08-26 07:21] LABS: ALBUMIN 1.8 gm/dl (3.1-4.5); BILIRUBIN, TOTAL 0.3 mg/dl (0.2-1.0); MAGNESIUM 2.2 mg/dL (1.5-2.1); POTASSIUM 4.8 mmol/L (3.5-5.1); TOTAL PROTEIN 5.4 gm/dL (6.4-8.2)
[2016-08-26 08:00] VITALS: BP 140/53
[2016-08-26 12:00] VITALS: BP 164/88
[2016-08-26 15:07] LABS: URINE FOR EOSINOPHILS 115055 No Eosinophils Seen % (.)
[2016-08-26 20:00] VITALS: BP 143/83
[2016-08-27] VITALS: BP 144/66
[2016-08-27 06:22] LABS: BASO # 0.1 10*3/uL (0.0-0.1); BASO % 1.3 % (0.0-1.0); EOS # 0.5 10*3/uL (0.0-0.4); EOS % 9.3 % (1.0-4.0); HEMATOCRIT 26.6 % (37.0-47.0); HEMOGLOBIN 8.2 g/dl (12.0-16.0); LYMPH # 1.3 10*3/uL (1.3-4.4); LYMPH % 22.8 % (27.0-41.0); MEAN CELL VOLUME 86.6 fl (81.0-99.0); MEAN CORPUSCULAR HGB 26.7 pg (27.0-31.0); MEAN CORPUSCULAR HGB CONC 30.8 g/dl (33.0-37.0); MEAN PLATELET VOLUME 8.7 fl (9.6-12.3); MONO # 0.7 10*3/uL (0.1-1.0); MONO % 13.5 % (3.0-9.0); NEUT # 2.9 10*3/uL (2.3-7.9); NEUT % 52.7 % (47.0-73.0); PLATELET COUNT AUTOMATED 215 10*3/uL (130-400); RED BLOOD COUNT 3.07 10*6/uL (4.10-5.10); RED CELL DISTRI WIDTH 16.3 % (0-14.5); WHITE BLOOD COUNT 5.5 10*3/uL (4.8-10.8)
[2016-08-27 06:51] LABS: ALBUMIN 1.7 gm/dl (3.1-4.5); BILIRUBIN, TOTAL 0.3 mg/dl (0.2-1.0); MAGNESIUM 1.8 mg/dL (1.5-2.1); TOTAL PROTEIN 5.1 gm/dL (6.4-8.2)
[2016-08-27 08:00] VITALS: BP 144/83
[2016-08-27 12:00] VITALS: BP 105/51
[2016-08-27 16:00] VITALS: BP 136/70; BP 174/72
[2016-08-28] VITALS: BP 153/58
[2016-08-28 08:00] VITALS: BP 148/65
[2016-08-28 10:11] LABS: BASO # 0.1 10*3/uL (0.0-0.1); EOS # 0.5 10*3/uL (0.0-0.4); EOS % 6.4 % (1.0-4.0); HEMATOCRIT 30.3 % (37.0-47.0); HEMOGLOBIN 9.4 g/dl (12.0-16.0); LYMPH % 13.7 % (27.0-41.0); MEAN CELL VOLUME 86.8 fl (81.0-99.0); MEAN CORPUSCULAR HGB 26.9 pg (27.0-31.0); MEAN PLATELET VOLUME 8.9 fl (9.6-12.3); MONO # 0.5 10*3/uL (0.1-1.0); MONO % 7.3 % (3.0-9.0); NEUT # 5.1 10*3/uL (2.3-7.9); NEUT % 71.2 % (47.0-73.0); PLATELET COUNT AUTOMATED 267 10*3/uL (130-400); RED BLOOD COUNT 3.49 10*6/uL (4.10-5.10); RED CELL DISTRI WIDTH 16.2 % (0-14.5); WHITE BLOOD COUNT 7.2 10*3/uL (4.8-10.8)
[2016-08-28 10:22] LABS: ALBUMIN 2.1 gm/dl (3.1-4.5); PHOSPHOROUS 5.1 mg/dL (2.5-4.9); POTASSIUM 5.1 mmol/L (3.5-5.1)
[2016-08-28 16:00] VITALS: BP 168/65
[2016-08-28 20:00] VITALS: BP 160/70
[2016-08-29] VITALS: BP 149/63
[2016-08-29 07:08] LABS: ALBUMIN 1.9 gm/dl (3.1-4.5); POTASSIUM 4.8 mmol/L (3.5-5.1)
[2016-08-29 07:11] LABS: PHOSPHOROUS 5.5 mg/dL (2.5-4.9)
[2016-08-29 08:00] VITALS: BP 112/50
[2016-08-29 12:00] VITALS: BP 164/72
[2016-08-29] MEDS ORDERED: NATURE'S BLEND F1 MG PO (13:54)
[2016-08-29] MEDS ORDERED: LASIX80 MG PO (13:55)
== END 2016-08-29 15:36 | disposition home health service (06) | DRG 291 ==
LOC: ED 15:26 → EDHOLD 17:44 → 5E 17:44 → EDHOLD 18:37 → 5E 18:46
PROVIDERS: Emergency Medicine; Hospitalist; Internal Medicine; Internal Medicine Hospice and Palliative Medicine; Internal Medicine Nephrology; Physician Assistant
PROC: 30233N1 Transfusion of Nonautologous Red Blood Cells into Peripheral Vein, Percutaneous Approach (ICD-10-PCS; principal; 2016-08-22)
DX: I13.0 Hypertensive heart and chronic kidney disease with heart failure and stage 1 through stage 4 chronic kidney disease, or unspecified chronic kidney disease (principal); E43 Unspecified severe protein-calorie malnutrition; N17.9 Acute kidney failure, unspecified; N18.4 Chronic kidney disease, stage 4 (severe); E87.5 Hyperkalemia; E11.22 Type 2 diabetes mellitus with diabetic chronic kidney disease; B35.1 Tinea unguium; I50.33 Acute on chronic diastolic (congestive) heart failure; J44.9 Chronic obstructive pulmonary disease, unspecified; M19.90 Unspecified osteoarthritis, unspecified site; E55.9 Vitamin D deficiency, unspecified; E83.39 Other disorders of phosphorus metabolism; E11.51 Type 2 diabetes mellitus with diabetic peripheral angiopathy without gangrene; F32.9 Major depressive disorder, single episode, unspecified; D64.9 Anemia, unspecified; E66.01 Morbid (severe) obesity due to excess calories; F41.9 Anxiety disorder, unspecified; I87.2 Venous insufficiency (chronic) (peripheral); Z91.81 History of falling; Z87.891 Personal history of nicotine dependence; Z90.49 Acquired absence of other specified parts of digestive tract; Z82.49 Family history of ischemic heart disease and other diseases of the circulatory system; Z88.2 Allergy status to sulfonamides; Z88.8 Allergy status to other drugs, medicaments and biological substances; Z84.89 Family history of other specified conditions; Z88.6 Allergy status to analgesic agent; Z79.4 Long term (current) use of insulin; Z79.899 Other long term (current) drug therapy; Q80.9 Congenital ichthyosis, unspecified; Z68.39 Body mass index [BMI] 39.0-39.9, adult

== ENCOUNTER 2016-09-23 16:59 | Inpatient (IN) | payer MEDICARE, MEDICAID ==
[~2016-09-23] VITALS: Ht 167.6 cm; Wt 94.0 kg
[~2016-09-23 16:59] MED LIST changes: +LASIX80 MG PO; +NATURE'S BLEND F1 MG PO
[2016-09-23 17:01] VITALS: BP 187/79
[2016-09-23 18:11] LABS: BASO # 0.1 10*3/uL (0.0-0.1); BASO % 1.1 % (0.0-1.0); EOS # 0.4 10*3/uL (0.0-0.4); EOS % 6.1 % (1.0-4.0); HEMATOCRIT 29.3 % (37.0-47.0); HEMOGLOBIN 9.4 g/dl (12.0-16.0); LYMPH # 1.4 10*3/uL (1.3-4.4); LYMPH % 21.7 % (27.0-41.0); MEAN CELL VOLUME 84.4 fl (81.0-99.0); MEAN CORPUSCULAR HGB 27.1 pg (27.0-31.0); MEAN CORPUSCULAR HGB CONC 32.1 g/dl (33.0-37.0); MEAN PLATELET VOLUME 9.3 fl (9.6-12.3); MONO # 0.5 10*3/uL (0.1-1.0); NEUT # 3.9 10*3/uL (2.3-7.9); NEUT % 62.8 % (47.0-73.0); PLATELET COUNT AUTOMATED 227 10*3/uL (130-400); RED BLOOD COUNT 3.47 10*6/uL (4.10-5.10); RED CELL DISTRI WIDTH 14.3 % (0-14.5); WHITE BLOOD COUNT 6.2 10*3/uL (4.8-10.8)
[2016-09-23 18:28] LABS: ALBUMIN 2.8 gm/dl (3.1-4.5); ALKALINE PHOSPHATASE 113 U/L (45-117); BILIRUBIN, TOTAL 0.3 mg/dl (0.2-1.0); BUN 60 mg/dl (7-24); CARBON DIOXIDE 21 mmol/L (21-32); CHLORIDE 100 mmol/L (98-107); EST GLOM FILT AFRICAN AMERICAN 22 ml/min; GLUCOSE 239 mg/dL (65-99); POTASSIUM 4.2 mmol/L (3.5-5.1); SGOT/AST 13 IU/L (3-35); SGPT/ALT 10 U/L (12-78); SODIUM 135 mmol/L (136-145)
[2016-09-23 18:36] LABS: TROPONIN I < 0.015 ng/ml (<0.045)
[2016-09-23 20:04] VITALS: BP 167/80
[2016-09-23 21:05] VITALS: BP 160/100; BP 170/80
[2016-09-23] MEDS ORDERED: BUSPAR5 MG PO (22:16)
[2016-09-24] VITALS: BP 140/80
[2016-09-24 06:19] LABS: BASO # 0.1 10*3/uL (0.0-0.1); BASO % 1.4 % (0.0-1.0); EOS # 0.4 10*3/uL (0.0-0.4); EOS % 6.6 % (1.0-4.0); HEMATOCRIT 26.3 % (37.0-47.0); HEMOGLOBIN 8.6 g/dl (12.0-16.0); LYMPH # 1.4 10*3/uL (1.3-4.4); LYMPH % 22.9 % (27.0-41.0); MEAN CORPUSCULAR HGB 27.5 pg (27.0-31.0); MEAN CORPUSCULAR HGB CONC 32.7 g/dl (33.0-37.0); MEAN PLATELET VOLUME 9.3 fl (9.6-12.3); MONO # 0.6 10*3/uL (0.1-1.0); NEUT # 3.5 10*3/uL (2.3-7.9); NEUT % 58.8 % (47.0-73.0); PLATELET COUNT AUTOMATED 226 10*3/uL (130-400); RED BLOOD COUNT 3.13 10*6/uL (4.10-5.10); RED CELL DISTRI WIDTH 14.3 % (0-14.5); WHITE BLOOD COUNT 5.9 10*3/uL (4.8-10.8)
[2016-09-24 06:53] LABS: ALBUMIN 2.4 gm/dl (3.1-4.5); BILIRUBIN, TOTAL 0.4 mg/dl (0.2-1.0); FREE T4 0.83 ng/dl (0.76-1.46); MAGNESIUM 3.3 mg/dL (1.5-2.1); PHOSPHOROUS 3.9 mg/dL (2.5-4.9); TOTAL PROTEIN 6.1 gm/dL (6.4-8.2)
[2016-09-24 06:57] LABS: HEMOGLOBIN A1c 7.3 % (4.8-5.6); THYROID STIM HORMONE (HS) 1.25 uIU/ml (0.358-4.75)
[2016-09-24 07:05] LABS: INTERNATIONAL NORM RATIO 1.1 (2.0-3.5); PROTHROMBIN TIME 11.2 SECONDS (9.0-12.4)
[2016-09-24 08:00] VITALS: BP 160/72
[2016-09-24 08:25] LABS: VITAMIN D, 25-HYDROXY 20.3 ng/mL (30-100)
[2016-09-24 08:26] LABS: FOLIC ACID 16.29 ng/mL (>5.38)
== END 2016-09-24 13:50 | disposition home or self-care (01) | DRG 604 ==
LOC: ED 16:59 → EDHOLD 20:06 → 5E 20:29
PROVIDERS: Internal Medicine; Registered Nurse
DX: S90.121A Contusion of right lesser toe(s) without damage to nail, initial encounter (principal); E43 Unspecified severe protein-calorie malnutrition; E11.52 Type 2 diabetes mellitus with diabetic peripheral angiopathy with gangrene; I13.0 Hypertensive heart and chronic kidney disease with heart failure and stage 1 through stage 4 chronic kidney disease, or unspecified chronic kidney disease; I50.32 Chronic diastolic (congestive) heart failure; D64.9 Anemia, unspecified; B35.1 Tinea unguium; N18.4 Chronic kidney disease, stage 4 (severe); E55.9 Vitamin D deficiency, unspecified; Z96.643 Presence of artificial hip joint, bilateral; F41.9 Anxiety disorder, unspecified; M19.90 Unspecified osteoarthritis, unspecified site; I87.2 Venous insufficiency (chronic) (peripheral); J44.9 Chronic obstructive pulmonary disease, unspecified; E11.22 Type 2 diabetes mellitus with diabetic chronic kidney disease; Z90.49 Acquired absence of other specified parts of digestive tract; Z83.3 Family history of diabetes mellitus; Z82.49 Family history of ischemic heart disease and other diseases of the circulatory system; Z88.2 Allergy status to sulfonamides; Z88.6 Allergy status to analgesic agent; Z88.8 Allergy status to other drugs, medicaments and biological substances; Z79.4 Long term (current) use of insulin; Z79.899 Other long term (current) drug therapy; Z79.1 Long term (current) use of non-steroidal anti-inflammatories (NSAID)

== ENCOUNTER → 2016-10-03 | Outpatient (CLI) | payer MEDICARE, MEDICAID ==
[~2016-10-03] MED LIST changes: +BUSPAR5 MG PO
--- NOTE | ~2016-10-03 | PR ---
[place], [place] PROGRESS NOTE NAME: ZAYRA MOTT [facility] #: [id number] UNIT #: [id number] ROOM: DOCTOR: GAVIN AugusteASAEL BIRTHDATE: [birth year] DOS: 10/03/2016 CHIEF COMPLAINT: Blood blister of the left toe and blood blister of the fourth digit of the right foot. HISTORY OF PRESENT ILLNESS: This is a 51-year-old female known to the [facility] for previous ulcerations of the bilateral lower extremities secondary to severe venous insufficiency and diabetes, who has not been here for some time now, but comes in for new areas of concern. She had a blood blister noted on the fourth digit of the right foot, the dorsal aspect of the toe, which she went to the ER for as there was concern. She and her boyfriend were concerned about it. It appears that the patient was admitted for observation, but then discharged shortly after the next day. There was initially some concern of a possible infection. When he came to the Emergency Department; however, upon evaluation later on the floor, it was felt that it was a stable dried hematoma and there were no signs of an acute infection. She has a normal white count and a normal x-ray of her toe and foot. Therefore, the patient was discharged and was asked to follow up with the wound care and podiatry. PAST MEDICAL HISTORY: Significant for the following. Of note, he also, during her hospitalization, had venous Dopplers done of the right lower extremity and arterial Dopplers done of the right lower extremity, which were good. She did not have any significant peripheral occlusive disease noted. Her past history is significant for history of cellulitis. She has chronic anemia, diabetes, history of acute congestive heart failure, anxiety, arthritis, Veronica's palsy, congestive heart failure, COPD, chronic renal failure with severely decreased GFR, hypertension and hyperkalemia, ichthyosis, diabetes, lichen planus, normocytic anemia, obesity, onychomycosis, severe protein-calorie malnutrition, stasis dermatitis, venous stasis, keratosis, vitamin D deficiency. She is status post hand surgery, hip surgery, bilateral hip replacement, cholecystectomy. She does not smoke or drink. She has a history of smoking many years in the past, up to 2 packs per day, but for the past 10 years, she has not smoked. She lives with her boyfriend and has home health coming in to help her. FAMILY HISTORY: Significant for cirrhosis of her father, diabetes, hypertension, cardiac disease in her mother. ALLERGIES: SULFA, ALPRAZOLAM, CODEINE AND NAPROXEN. MEDICATIONS: From home are as follows: Buspirone 5 mg p.o. at bedtime, Symbicort, formoterol fumarate 2 puffs b.i.d., vitamin D3 1000 units daily, clonidine 0.1 at bedtime, iron sulfate 325 p.o. b.i.d., folic acid 1 mg p.o. daily, furosemide 80 p.o. b.i.d., hydralazine 50 p.o. t.i.d., hydrocodone 1 tablet q.i.d. p.r.n. for pain, insulin 70/30 40 units in the morning and 10 units in the evening and Phenergan 12.5 q.6h. p.r.n. for nausea and vomiting. REVIEW OF SYSTEMS: She also has a new area of concern of the left great toe, which she is not sure how this started. It is a blood-filled blister. She admits to wearing crocs. Her boyfriend states they are not clean and she [place], [place] PROGRESS NOTE NAME: ZAYRA MOTT UNIT #: [id number] ROOM: DOCTOR: ASAEL ALONSO M.D. BIRTHDATE: [birth year] refuses to wear socks. So at some point, she developed a blister of her left great toe and this is within the past week or so. The previous blood-filled blister on the right foot is not tender, the left one is fairly large and uncomfortable. There is no streaking from it; it is not draining. She denies fevers or chills. Any recent weight loss or change in appetite. As far as her other review of systems, unless otherwise stated in this report, they are unable to be obtained because the patient's clinical and mental status as evidenced by the medical record, the patient's positive and negative responses for review of systems, constitutional, psychiatric, eyes, ENT, cardiovascular, respiratory, GI, neurologic, , musculoskeletal, integument and systems related to the presenting problem were either stated the preceding or were negative for the symptoms and complaints related to the medical problem. Her Focused exam shows much older than stated age patient, quite debilitated, chronically ill-appearing, pale on examination. No acute distress. poor oral hygiene is noted. Poor general hygiene is also noted. PHYSICAL EXAMINATION: Temperature is 98, pulse of 76, respirations 18, blood pressure is 142/80. She refused ABIs as she could not lie flat. Her foot assessment shows sensation present on most of the right and left feet. There are a few areas that are negative for the lower extremity segment. Posterior tibial pulses are difficult to feel secondary to the severe edema and ichthyosis present. Her dorsalis pedis is palpable bilaterally. She has hyperpigmentation and hyperkeratosis throughout bilateral lower extremities, severe. Her toes are warm and capillary refill is less than 3 seconds. She has 2 areas of concern, one is on the fourth toe, dorsal aspect and it is fairly dry eschar at this point, 1.8 x 1.2 x 0.1. There is no sign of cellulitis. It is not really lifting off on its own. It is not tender. The left great toe area is measuring 2.2 x 1.8 x 0.1. It is soft. Blood was dark old blood filled into the area. There is no evidence of cellulitis. It is mildly tender. I discussed with the patient that we could continue to watch this area for a week or we can go ahead and drain it, and the patient would like me to drain it today, so I did drain the left great toe blistered area with a very small incision. The area was prepped with Cetacaine spray first. A small that was made and old dark blood was drained from the area. No evidence of purulence or odor was noted. The patient tolerated the procedure well. Her most recent labs show white count of 5.9, hemoglobin of 8.6, hematocrit of 26.3, platelets of 226. Chem-7 is showing a BUN of 58 and creatinine of 2.6. Hemoglobin A1c is 7.3. She had a ultrasound done of the right lower extremity, which is venous and negative, ultrasound done of the right leg, which showed no hemodynamically significant stenosis of the right lower extremity. She actually did not have the left lower extremity Doppler done. An x-ray was done of the right foot, which was negative. ASSESSMENT AND PLAN: Hematoma of the right foot, which was likely traumatic in nature, either from an acute trauma or from poorly fitting diet of footwear. I think that at this point is stable and dry. There is no sign of infection. Clinically, I would continue to leave this area dry for now. Hopefully, this scab will just fall off on its own. There is no sign of infection. The left [place], [place] PROGRESS NOTE NAME: ZAYRA MOTT UNIT #: [id number] ROOM: DOCTOR: ASAEL ALONSO M.D. BIRTHDATE: [birth year] great toe hematoma was drained today, was fairly large. She says it felt better now that we drained it. I would keep this area covered with Betadine and change it daily and keep it protected and have her keep a close eye on it. She has home health coming in and on the days that home health can come in, they can swab it with Betadine. She should come back in 1 week to reevaluate the situation. She did not have a Doppler done of the left leg. We may want to consider this in the future. In the past, I have recommended bilateral Doppler studies to be done as well and she did not want them done as an outpatient; however, we will follow her closely and encourage perhaps getting the left leg done as well. Although, clinically, there does not appear to be any significant difference between circulation from the left leg and the right leg. I did also recommend for her to keep her feet protected, will use postop shoes for now and also she should wear diabetic socks on a daily basis. ASAEL ALONSO MD CM:PNIRIS [id number] ASAEL ALONSO M.D. 10/04/16 0650 interface
[2016-10-03 13:07] LABS: PROTHROMBIN TIME 10.7 SECONDS (9.0-12.4)
== END | disposition home or self-care (01) ==
LOC: WOUNDCARE 02:14 → LAB 02:14 → WOUNDCARE 11:47
PROVIDERS: Internal Medicine Cardiovascular Disease
DX: I11.0 Hypertensive heart disease with heart failure (principal); E11.22 Type 2 diabetes mellitus with diabetic chronic kidney disease; E11.628 Type 2 diabetes mellitus with other skin complications; I50.32 Chronic diastolic (congestive) heart failure; S90.421A Blister (nonthermal), right great toe, initial encounter; I48.91 Unspecified atrial fibrillation; N19 Unspecified kidney failure; X58.XXXA Exposure to other specified factors, initial encounter; Y93.89 Activity, other specified; Y92.89 Other specified places as the place of occurrence of the external cause; Y99.8 Other external cause status

== ENCOUNTER → 2016-10-10 | Outpatient (CLI) | payer MEDICARE, MEDICAID ==
--- NOTE | ~2016-10-10 | PR ---
[place], [place] PROGRESS NOTE NAME: ZAYRA MOTT [facility] #: [id number] UNIT #: [id number] ROOM: DOCTOR: GAVIN AugusteASAEL BIRTHDATE: [birth year] DOS: 10/10/2016 WOUND CARE FOLLOWUP NOTE CHIEF COMPLAINT: Followup of a blood blister of the left toe and of the fourth digit of the right foot. HISTORY OF PRESENT ILLNESS: This is a 51-year-old female with diabetes and previous severe venous insufficiency who came in last week for complaints of blisters on both of her feet, one was on the left great toe and one was on the right foot. She had it for approximately a week. She was seen for the first time last week where it looked like they were fairly stable, although she did complain of some discomfort with the left great toe blood blister. This was drained of old blood; guess, last week it was not debrided, however. The other wound was left dry and intact. She comes in today for followup wound care visit. We have been using Betadine to the areas and she was asked to wear a postop shoe that is open instead of closed crocs, which are poorly fitting for her and she had refused to wear socks before. She says she cannot use the postop shoes because she cannot use them to get in and out of her wheelchair, so she went back to her crocs. She is, however, wearing socks which we did encourage her to wear socks last time as well. She comes in today saying that overall she has no complaints with her feet at the present time. There is no drainage. There is no pain at all with any of them. No fevers or chills are noted. PHYSICAL EXAMINATION: VITAL SIGNS: Stable. Temperature is 98.5, pulse of 72, respirations 18, blood pressure is 120/60. WOUND EXAMINATION: The wound on the right fourth toe is measuring smaller at 1.3 x 1 x 0.1. It is very dry and stable. It is starting to form a dried eschar type wound on the fifth. The other wound on the right great toe is measuring smaller as well at 1.3 x 1 x 0.1. It is completely intact. There is still some old dried blood present in the base of the wound, but it is not tender; last week it was tender, this week it is not. There is no sign of cellulitis. PLAN: I advised since it was not tender and not causing her any discomfort that we should just leave it alone for this week and follow her up next week. We will continue to paint it with Betadine. I did go over her ultrasound reports, she did not have ultrasound done of her left leg, so we will go ahead and do an arterial ultrasound of the left lower extremity. She had had a right lower extremity arterial Doppler done, which was negative and unremarkable, so we will have her get this done and followup in next week. [place], [place] [id number] UN[facility] #: [id number] ROOM: DOCTOR: ASAEL ALONSO M.D. BIRTHDATE: [birth year] ASAEL ALONSO MD CM:ADDISON [id number] ASAEL ALONSO M.D. 10/10/16 221 interface
== END ==
LOC: WOUNDCARE 02:06
DX: S90.422D Blister (nonthermal), left great toe, subsequent encounter (principal); S90.821D Blister (nonthermal), right foot, subsequent encounter; E11.628 Type 2 diabetes mellitus with other skin complications; I87.2 Venous insufficiency (chronic) (peripheral); X58.XXXD Exposure to other specified factors, subsequent encounter

== ENCOUNTER → 2016-11-02 | Outpatient (CLI) | payer MEDICARE, MEDICAID | END | disposition home or self-care (01) | LOC: US 10-20 13:00 | DX: E11.52 Type 2 diabetes mellitus with diabetic peripheral angiopathy with gangrene (principal); E11.621 Type 2 diabetes mellitus with foot ulcer; E11.628 Type 2 diabetes mellitus with other skin complications; M79.89 Other specified soft tissue disorders ==

== ENCOUNTER → 2016-12-13 | Outpatient (CLI) | payer MEDICARE, MEDICAID ==
[2016-12-13 11:26] LABS: ALBUMIN 3.4 gm/dl (3.1-4.5); ALKALINE PHOSPHATASE 85 U/L (45-117); BILIRUBIN, DIRECT < 0.1 mg/dL (0.0-0.2); BILIRUBIN, TOTAL 0.3 mg/dl (0.2-1.0); BUN 90 mg/dl (7-24); CARBON DIOXIDE 22 mmol/L (21-32); CHLORIDE 104 mmol/L (98-107); EST GLOM FILT AFRICAN AMERICAN 21 ml/min; GLUCOSE 100 mg/dL (65-99); POTASSIUM 5.1 mmol/L (3.5-5.1); SGOT/AST 15 IU/L (3-35); SGPT/ALT 16 U/L (12-78); SODIUM 137 mmol/L (136-145); TOTAL PROTEIN 7.1 gm/dL (6.4-8.2)
[2016-12-13 11:32] LABS: HEMOGLOBIN A1c 7.8 % (4.8-5.6)
== END | disposition home or self-care (01) ==
LOC: LAB 10:29
PROVIDERS: Internal Medicine
DX: E11.65 Type 2 diabetes mellitus with hyperglycemia (principal); E78.5 Hyperlipidemia, unspecified; E55.9 Vitamin D deficiency, unspecified

== ENCOUNTER → 2017-04-10 | Outpatient (CLI) | payer MEDICARE, MEDICAID ==
[2017-04-10 12:52] LABS: ALBUMIN 2.9 gm/dl (3.1-4.5); ALKALINE PHOSPHATASE 75 U/L (45-117); BILIRUBIN, DIRECT < 0.1 mg/dL (0.0-0.2); BUN 48 mg/dl (7-24); CHLORIDE 107 mmol/L (98-107); CHOLESTEROL 127 mg/dL (<200); CREATININE 3.27 mg/dL (0.55-1.02); HDL CHOLESTEROL 71 mg/dl (40-60); LDL CHOLESTEROL 43 mg/dL (9-159); SGOT/AST 10 IU/L (3-35); SGPT/ALT 12 U/L (12-78); SODIUM 138 mmol/L (136-145); TOTAL PROTEIN 6.7 gm/dL (6.4-8.2); TRIGLYCERIDES 65 mg/dl (<150); VLDL CHOLESTEROL 13 mg/dL (6-40)
== END | disposition home or self-care (01) ==
LOC: LAB 11:54
PROVIDERS: Internal Medicine
DX: E11.65 Type 2 diabetes mellitus with hyperglycemia (principal); E78.5 Hyperlipidemia, unspecified; E55.9 Vitamin D deficiency, unspecified

== ENCOUNTER → 2017-06-29 | Outpatient (CLI) | payer MEDICARE, MEDICAID | END | disposition home or self-care (01) | LOC: WOUNDCARE 09:22 | DX: E11.622 Type 2 diabetes mellitus with other skin ulcer (principal); L97.811 Non-pressure chronic ulcer of other part of right lower leg limited to breakdown of skin; L97.821 Non-pressure chronic ulcer of other part of left lower leg limited to breakdown of skin; I89.0 Lymphedema, not elsewhere classified; E11.22 Type 2 diabetes mellitus with diabetic chronic kidney disease; I13.0 Hypertensive heart and chronic kidney disease with heart failure and stage 1 through stage 4 chronic kidney disease, or unspecified chronic kidney disease; N18.4 Chronic kidney disease, stage 4 (severe); I50.9 Heart failure, unspecified; J44.9 Chronic obstructive pulmonary disease, unspecified; M19.90 Unspecified osteoarthritis, unspecified site; F41.9 Anxiety disorder, unspecified; Z96.643 Presence of artificial hip joint, bilateral; Z87.891 Personal history of nicotine dependence ==

== ENCOUNTER 2017-07-26 13:31 | Inpatient (IN) | payer MEDICARE, MEDICAID ==
[~2017-07-26] VITALS: Ht 167.6 cm; Wt 86.2 kg
[2017-07-26] VITALS (8 sets, daily range): BP systolic 154–194; BP diastolic 64–84
--- NOTE | ~2017-07-26 | CON ---
[place], [place] REPORT OF CONSULTATION [id number] UNIT #: [id number] ROOM: 426 DOCTOR: SINDY GARCIA MD BIRTHDATE: [birth year] DOS: 07/28/2017 GASTROENDOSCOPIC CONSULTATION HISTORY OF PRESENT ILLNESS: A 52-year-old patient who presented with multiple medical problems, among which has been profound anemia and she is status post transfusion. Meanwhile, she has chronic renal failure. Meanwhile, she is mentally slow; however, making her own decisions. I have been asked for assessment of her status regarding possibility of GI bleed contribution to the anemia in addition to chronic diseases. At the time of admission, her white blood cell was 7, H and H of 7 and 24 with platelet count of 215. Lactic acid was within normal limit. Comprehensive metabolic panel: BUN and creatinine 59 and 3.49 with a GFR of 17. INR was 1.0. PT, PTT within normal limits. Strep test was negative. Chest x-ray was reviewed. Kyphoscoliosis and lungs some reticular nodular pattern rather diffuse possibly bronchitis or bronchiectasis, cannot be ruled out. She was cared for on the floor and stabilized to a point where we can do endoscopic assessment. However, she refused colonic prep and she only agreed per negotiation of her family members for endoscopic assessment of upper GI tract. Her hemoglobin A1c 15.9. Her Doppler study of lower extremities, no evidence of DVT. Latest CBC, H and H improved to 8 and 26. Basic metabolic panel nearly corrected with a calcium of 8.0 with low albumin. Iron studies were noticed. Iron level 36, low. Her labs and records and x-rays were reviewed. Family members present in the room and discussed the plan of action for endoscopy. PAST MEDICAL HISTORY: Associated chronic anemia of renal failure, Veronica's palsy, degenerative joint disease, anxiety, hypertension, obesity, diabetes mellitus, protein-calorie malnutrition, vitamin D deficiency. PAST SURGICAL HISTORY: Minor surgeries on hand, bilateral hip prosthesis, cholecystectomy and chronic lower extremity cellulitis management. SOCIAL HISTORY: Nonsmoker, nonalcohol consumer at the present time, however, she used to have 2-pack smoker history. FAMILY HISTORY: Diabetes, hypertension, and cirrhosis. ALLERGIES: ALPRAZOLAM SULFA, CODEINE AND NAPROXEN PRODUCT. MEDICATIONS: At home has been reviewed. She is not on blood thinners or antiplatelets. REVIEW OF SYSTEMS: HEENT: Denies double vision, blurred vision. RESPIRATORY: Admits some shortness of breath. CARDIOVASCULAR: Denies chest pain. DIGESTIVE SYSTEM: Emesis. PHYSICAL EXAMINATION: GENERAL: Obese patient. [place], [place] REPORT OF CONSULTATION NAME: ZAYRA MOTT UNIT #: [id number] ROOM: 426 DOCTOR: SINDY GARCIA MD BIRTHDATE: [birth year] VITAL SIGNS: Hypertensive in general. HEENT: Head normocephalic, nontraumatic. Mouth and buccal mucosa benign. No aphthoid ulcerations. NECK: Supple, no thyromegaly. CHEST: Symmetric anatomy, decreased air entry in general. No wheezes. HEART: Normal sinus rhythm, no gallop, no murmur. ABDOMEN: Obese, large, soft. No hepato-organomegaly, intraabdominal organs cannot be in detail examined. EXTREMITIES: Lower extremities is wrapped with a gauze all the way to knee level because of old cellulitis and edema. NEUROLOGIC: Alert and slow orientation. LABORATORY DATA: Reviewed, records reviewed. IMPRESSION: Profound anemia, possible contribution from renal failure, chronic diseases, also issues of concerns about contribution from GI tract. She refuses colonoscopy. We have been able to negotiate to see if this endoscopy can be organized for upper GI assessment and family involved and she has agreed. OTHER ADJUNCTIVE DIAGNOSES: Bronchitis, hypertension, diabetes mellitus, cellulitis of lower extremities, chronic obstructive pulmonary disease, emesis. All has been reviewed. PLAN AND DISCUSSION: We are going to proceed with EGD. SINDY GARCIA MD CM:CONSTR:REPORT OF CONSULTATION 0835 07/28/17 1148 interface
--- NOTE | ~2017-07-26 | O ---
[place], [place] OPERATIVE NOTE [id number] UNIT #: [id number] ROOM: 426 DOCTOR: SINDY GARCIA MD BIRTHDATE: [birth year] DOS: 07/28/2017 INDICATIONS: The patient is a 52-year-old who has presented with chief complaint of nausea, anemia of severe degree, chronic renal failure, and cellulitis of lower extremities. PROCEDURE: Today's procedure part of investigation is panendoscopy plus biopsy and photographic series. PREMEDICATION: Versed and Diprivan. SCOPE: Olympus forward-viewing gastroscope Q10 video. REPORT: After putting the patient in left lateral position and application of lubricant to the scope, the scope was introduced. Thereafter, under direct visualization, advanced through the length of esophagus without difficulty. Gastric pouch was entered. Gastric erosions and degraded blood in the gastric pouch was identified. Duodenal bulb, second and third part within normal limits. The patient was extubated after a biopsy and photographic series. IMPRESSION: Gastritis, gastric erosions, degraded blood in the stomach signifying bleeding. PLAN AND DISCUSSION: Protonix 40 mg b.i.d. while inpatient and as outpatient 40 mg daily. The patient refused colonoscopy. One of the causes of anemia, I believe this was contribution from upper GI blood loss. SINDY GARCIA MD CM:OPRECORD:OPERATIVE NOTE 0 0 SINDY GARCIA MD 07/28/17910 interface
[~2017-07-26 13:31] MED LIST changes: -VITAMIN D1000 IU PO; +VITAMIN D22000 UNIT PO
[2017-07-26 15:12] LABS: BASO # 0.1 10*3/uL (0.0-0.1); BASO % 0.7 % (0.0-1.0); EOS % 0.3 % (1.0-4.0); HEMATOCRIT 24.6 % (37.0-47.0); HEMOGLOBIN 7.4 g/dl (12.0-16.0); LYMPH # 0.7 10*3/uL (1.3-4.4); LYMPH % 9.6 % (27.0-41.0); MEAN CELL VOLUME 89.5 fl (81.0-99.0); MEAN CORPUSCULAR HGB 26.9 pg (27.0-31.0); MEAN CORPUSCULAR HGB CONC 30.1 g/dl (33.0-37.0); MEAN PLATELET VOLUME 9.1 fl (9.6-12.3); MONO # 0.4 10*3/uL (0.1-1.0); MONO % 5.8 % (3.0-9.0); NEUT # 5.9 10*3/uL (2.3-7.9); NEUT % 83.2 % (47.0-73.0); PLATELET COUNT AUTOMATED 215 10*3/uL (130-400); RED BLOOD COUNT 2.75 10*6/uL (4.10-5.10); RED CELL DISTRI WIDTH 15.5 % (0-14.5); WHITE BLOOD COUNT 7.1 10*3/uL (4.8-10.8)
[2017-07-26 15:26] LABS: ALBUMIN 3.1 gm/dl (3.1-4.5); CREATININE 3.49 mg/dL (0.55-1.02); POTASSIUM 5.3 mmol/L (3.5-5.1); TOTAL PROTEIN 7.3 gm/dL (6.4-8.2)
[2017-07-26 16:27] LABS: ACT PARTIAL THROMBO TIME 30.7 SECONDS (20.8-31.5)
[2017-07-26] MEDS ORDERED: FEROSUL220 MG/51 PO (16:36)
[2017-07-27] VITALS: BP 155/70; BP 190/77
[2017-07-27 08:00] VITALS: BP 174/80
[2017-07-27 08:13] LABS: BASO # 0.1 10*3/uL (0.0-0.1); BASO % 1.2 % (0.0-1.0); EOS # 0.1 10*3/uL (0.0-0.4); EOS % 0.8 % (1.0-4.0); HEMATOCRIT 28.5 % (37.0-47.0); HEMOGLOBIN 8.6 g/dl (12.0-16.0); LYMPH # 1.5 10*3/uL (1.3-4.4); LYMPH % 17.6 % (27.0-41.0); MEAN CELL VOLUME 90.2 fl (81.0-99.0); MEAN CORPUSCULAR HGB 27.2 pg (27.0-31.0); MEAN CORPUSCULAR HGB CONC 30.2 g/dl (33.0-37.0); MEAN PLATELET VOLUME 9.2 fl (9.6-12.3); MONO # 0.7 10*3/uL (0.1-1.0); NEUT # 6.1 10*3/uL (2.3-7.9); PLATELET COUNT AUTOMATED 241 10*3/uL (130-400); RED BLOOD COUNT 3.16 10*6/uL (4.10-5.10); RED CELL DISTRI WIDTH 15.5 % (0-14.5); WHITE BLOOD COUNT 8.4 10*3/uL (4.8-10.8)
[2017-07-27 08:27] LABS: CREATININE 3.47 mg/dL (0.55-1.02); TOTAL PROTEIN 7.4 gm/dL (6.4-8.2)
[2017-07-27 08:28] LABS: FREE T4 0.81 ng/dl (0.76-1.46)
[2017-07-27 08:33] LABS: THYROID STIM HORMONE (HS) 1.31 uIU/ml (0.358-4.75)
[2017-07-27 08:45] LABS: ACT PARTIAL THROMBO TIME 28.7 SECONDS (20.8-31.5); INTERNATIONAL NORM RATIO 1.1 (2.0-3.5)
[2017-07-27 09:10] LABS: VITAMIN D, 25-HYDROXY 27.4 ng/mL (30-100)
[2017-07-27 11:20] VITALS: BP 150/90
[2017-07-27 12:00] VITALS: BP 160/78
[2017-07-27 12:57] LABS: IRON 36 ug/dL (50-170); TOTAL IRON BINDING CAPACITY 275 ug/dl (250-450)
[2017-07-27 16:00] VITALS: BP 159/73
[2017-07-27 20:29] VITALS: BP 191/77
[2017-07-28] VITALS (9 sets, daily range): BP systolic 148–203; BP diastolic 57–100
[2017-07-28 07:00] LABS: BASO # 0.1 10*3/uL (0.0-0.1); BASO % 1.3 % (0.0-1.0); EOS # 0.2 10*3/uL (0.0-0.4); EOS % 2.8 % (1.0-4.0); HEMATOCRIT 26.5 % (37.0-47.0); LYMPH # 1.4 10*3/uL (1.3-4.4); LYMPH % 19.5 % (27.0-41.0); MEAN CELL VOLUME 90.1 fl (81.0-99.0); MEAN CORPUSCULAR HGB 27.2 pg (27.0-31.0); MEAN CORPUSCULAR HGB CONC 30.2 g/dl (33.0-37.0); MONO # 0.8 10*3/uL (0.1-1.0); MONO % 11.7 % (3.0-9.0); NEUT # 4.6 10*3/uL (2.3-7.9); NEUT % 64.4 % (47.0-73.0); PLATELET COUNT AUTOMATED 198 10*3/uL (130-400); RED BLOOD COUNT 2.94 10*6/uL (4.10-5.10); RED CELL DISTRI WIDTH 15.5 % (0-14.5); WHITE BLOOD COUNT 7.2 10*3/uL (4.8-10.8)
[2017-07-28 07:09] LABS: CREATININE 3.68 mg/dL (0.55-1.02); POTASSIUM 4.6 mmol/L (3.5-5.1)
[2017-07-29 00:16] VITALS: BP 175/74
[2017-07-29 07:33] LABS: BASO # 0.1 10*3/uL (0.0-0.1); BASO % 1.3 % (0.0-1.0); EOS # 0.5 10*3/uL (0.0-0.4); EOS % 5.8 % (1.0-4.0); HEMATOCRIT 28.9 % (37.0-47.0); HEMOGLOBIN 8.7 g/dl (12.0-16.0); LYMPH # 1.8 10*3/uL (1.3-4.4); LYMPH % 20.4 % (27.0-41.0); MEAN CELL VOLUME 89.2 fl (81.0-99.0); MEAN CORPUSCULAR HGB 26.9 pg (27.0-31.0); MEAN CORPUSCULAR HGB CONC 30.1 g/dl (33.0-37.0); MEAN PLATELET VOLUME 8.6 fl (9.6-12.3); MONO % 11.3 % (3.0-9.0); NEUT # 5.2 10*3/uL (2.3-7.9); NEUT % 60.8 % (47.0-73.0); PLATELET COUNT AUTOMATED 210 10*3/uL (130-400); RED BLOOD COUNT 3.24 10*6/uL (4.10-5.10); RED CELL DISTRI WIDTH 15.2 % (0-14.5); WHITE BLOOD COUNT 8.6 10*3/uL (4.8-10.8)
[2017-07-29 08:00] VITALS: BP 173/71
[2017-07-29 08:02] LABS: ALBUMIN 2.7 gm/dl (3.1-4.5); CREATININE 3.65 mg/dL (0.55-1.02); POTASSIUM 4.6 mmol/L (3.5-5.1); TOTAL PROTEIN 6.7 gm/dL (6.4-8.2)
[2017-07-29 12:00] VITALS: BP 173/88
[2017-07-29] MEDS ORDERED: AMLODIPINE BESYL5 MG PO ×2 (15:07→16:24)
[2017-07-29] MEDS ORDERED: PROTONIX40 MG PO ×2 (15:07→16:24)
[2017-07-29] MEDS ORDERED: FEOSOL,FER300 MG/5 M PO ×2 (15:07→16:24)
[2017-07-29] MEDS ORDERED: DOXYCYCLINE100 M3 PO ×2 (15:09→16:24)
[2017-07-29 16:00] VITALS: BP 165/80
== END 2017-07-29 18:00 | disposition home or self-care (01) | DRG 377 ==
LOC: ED 13:31 → 4E 16:08 → EDHOLD 16:08 → 4E 16:37
PROVIDERS: Family Medicine; Hospitalist; Internal Medicine; Nurse Practitioner
PROC: 30233N1 Transfusion of Nonautologous Red Blood Cells into Peripheral Vein, Percutaneous Approach (ICD-10-PCS; principal; 2017-07-26)
PROC: 0DB68ZX Excision of Stomach, Via Natural or Artificial Opening Endoscopic, Diagnostic (ICD-10-PCS; 2017-07-28)
DX: K29.71 Gastritis, unspecified, with bleeding (principal); J18.9 Pneumonia, unspecified organism; E43 Unspecified severe protein-calorie malnutrition; I13.0 Hypertensive heart and chronic kidney disease with heart failure and stage 1 through stage 4 chronic kidney disease, or unspecified chronic kidney disease; E11.22 Type 2 diabetes mellitus with diabetic chronic kidney disease; N17.9 Acute kidney failure, unspecified; I50.32 Chronic diastolic (congestive) heart failure; N18.4 Chronic kidney disease, stage 4 (severe); L03.115 Cellulitis of right lower limb; E66.01 Morbid (severe) obesity due to excess calories; E11.65 Type 2 diabetes mellitus with hyperglycemia; E87.1 Hypo-osmolality and hyponatremia; L03.116 Cellulitis of left lower limb; J44.0 Chronic obstructive pulmonary disease with (acute) lower respiratory infection; Z68.41 Body mass index [BMI] 40.0-44.9, adult; K31.89 Other diseases of stomach and duodenum; I87.2 Venous insufficiency (chronic) (peripheral); K25.4 Chronic or unspecified gastric ulcer with hemorrhage; D63.1 Anemia in chronic kidney disease; M41.9 Scoliosis, unspecified; E83.41 Hypermagnesemia; E87.5 Hyperkalemia; D72.810 Lymphocytopenia; F41.9 Anxiety disorder, unspecified; M19.90 Unspecified osteoarthritis, unspecified site; G51.0 Bell's palsy; Z96.643 Presence of artificial hip joint, bilateral; Z83.3 Family history of diabetes mellitus; Z82.49 Family history of ischemic heart disease and other diseases of the circulatory system; Z79.4 Long term (current) use of insulin; Z90.49 Acquired absence of other specified parts of digestive tract; Z87.891 Personal history of nicotine dependence; Z83.79 Family history of other diseases of the digestive system; Z88.2 Allergy status to sulfonamides; Z88.8 Allergy status to other drugs, medicaments and biological substances; Z79.899 Other long term (current) drug therapy

== ENCOUNTER → 2017-08-02 | Outpatient (CLI) | payer MEDICARE, MEDICAID ==
[~2017-08-02] MED LIST changes: +AMLODIPINE BESYL5 MG PO; +DOXYCYCLINE100 M3 PO; +FEOSOL,FER300 MG/5 M PO; +FEROSUL220 MG/51 PO; +PROTONIX40 MG PO
== END | disposition home or self-care (01) ==
LOC: WOUNDCARE 03:57
DX: I87.333 Chronic venous hypertension (idiopathic) with ulcer and inflammation of bilateral lower extremity (principal); E11.622 Type 2 diabetes mellitus with other skin ulcer; L97.221 Non-pressure chronic ulcer of left calf limited to breakdown of skin; L97.212 Non-pressure chronic ulcer of right calf with fat layer exposed; J44.9 Chronic obstructive pulmonary disease, unspecified; I11.0 Hypertensive heart disease with heart failure; I50.9 Heart failure, unspecified; M19.90 Unspecified osteoarthritis, unspecified site; F41.9 Anxiety disorder, unspecified; Z87.891 Personal history of nicotine dependence; Z96.643 Presence of artificial hip joint, bilateral; Z90.49 Acquired absence of other specified parts of digestive tract

== ENCOUNTER → 2017-08-09 | Outpatient (CLI) | payer MEDICARE, MEDICAID | END | disposition home or self-care (01) | LOC: WOUNDCARE 00:34 | DX: E11.622 Type 2 diabetes mellitus with other skin ulcer (principal); I87.333 Chronic venous hypertension (idiopathic) with ulcer and inflammation of bilateral lower extremity; L97.212 Non-pressure chronic ulcer of right calf with fat layer exposed; L97.222 Non-pressure chronic ulcer of left calf with fat layer exposed; E11.51 Type 2 diabetes mellitus with diabetic peripheral angiopathy without gangrene; E11.620 Type 2 diabetes mellitus with diabetic dermatitis; I11.0 Hypertensive heart disease with heart failure; I50.9 Heart failure, unspecified; J44.9 Chronic obstructive pulmonary disease, unspecified; M19.90 Unspecified osteoarthritis, unspecified site; F41.9 Anxiety disorder, unspecified; Z96.643 Presence of artificial hip joint, bilateral; Z87.891 Personal history of nicotine dependence ==

== ENCOUNTER 2017-08-16 15:42 | Inpatient (IN) | payer MEDICARE, MEDICAID ==
[~2017-08-16] VITALS: Ht 165.1 cm; Wt 111.3 kg
[~2017-08-16 15:42] MED LIST changes: -'CLONIDINE0.1 MG PO; -AMLODIPINE BESY10 MG PO
[2017-08-16 16:20] VITALS: BP 162/70
[2017-08-16 17:10] VITALS: BP 164/74
[2017-08-16 18:49] VITALS: BP 164/76
[2017-08-16 19:20] VITALS: BP 160/68
[2017-08-16 20:00] VITALS: BP 192/67
[2017-08-16 22:30] VITALS: BP 160/68
[2017-08-17 06:14] LABS: BASO # 0.1 10*3/uL (0.0-0.1); BASO % 0.9 % (0.0-1.0); EOS # 0.4 10*3/uL (0.0-0.4); EOS % 6.1 % (1.0-4.0); HEMATOCRIT 23.1 % (37.0-47.0); HEMOGLOBIN 6.8 g/dl (12.0-16.0); LYMPH % 17.2 % (27.0-41.0); MEAN CELL VOLUME 89.2 fl (81.0-99.0); MEAN CORPUSCULAR HGB 26.3 pg (27.0-31.0); MEAN CORPUSCULAR HGB CONC 29.4 g/dl (33.0-37.0); MEAN PLATELET VOLUME 9.4 fl (9.6-12.3); MONO # 0.6 10*3/uL (0.1-1.0); MONO % 9.7 % (3.0-9.0); NEUT # 3.9 10*3/uL (2.3-7.9); NEUT % 65.9 % (47.0-73.0); PLATELET COUNT AUTOMATED 205 10*3/uL (130-400); RED BLOOD COUNT 2.59 10*6/uL (4.10-5.10); RED CELL DISTRI WIDTH 14.6 % (0-14.5); WHITE BLOOD COUNT 5.9 10*3/uL (4.8-10.8)
[2017-08-17 06:20] LABS: INTERNATIONAL NORM RATIO 1.1 (2.0-3.5)
[2017-08-17 06:25] LABS: ALBUMIN 2.7 gm/dl (3.1-4.5); CREATININE 4.12 mg/dL (0.55-1.02); PHOSPHOROUS 3.4 mg/dL (2.5-4.9); POTASSIUM 5.1 mmol/L (3.5-5.1); TOTAL PROTEIN 6.4 gm/dL (6.4-8.2)
[2017-08-17 08:00] VITALS: BP 168/84
[2017-08-17 10:05] VITALS: BP 180/72
[2017-08-17 11:05] VITALS: BP 176/76
[2017-08-17 13:56] LABS: HEMATOCRIT 27.7 % (37.0-47.0); HEMOGLOBIN 8.6 g/dl (12.0-16.0)
[2017-08-17 16:00] VITALS: BP 143/68; BP 160/88
[2017-08-17 20:00] VITALS: BP 150/76; BP 176/81
[2017-08-18] VITALS: BP 147/63
[2017-08-18 04:00] VITALS: BP 158/66
[2017-08-18 06:19] LABS: BASO # 0.1 10*3/uL (0.0-0.1); BASO % 0.8 % (0.0-1.0); EOS # 0.6 10*3/uL (0.0-0.4); EOS % 9.6 % (1.0-4.0); HEMATOCRIT 26.7 % (37.0-47.0); LYMPH % 16.4 % (27.0-41.0); MEAN CELL VOLUME 89.6 fl (81.0-99.0); MEAN CORPUSCULAR HGB 26.8 pg (27.0-31.0); MEAN PLATELET VOLUME 9.5 fl (9.6-12.3); MONO # 0.6 10*3/uL (0.1-1.0); MONO % 10.2 % (3.0-9.0); NEUT # 3.9 10*3/uL (2.3-7.9); NEUT % 62.7 % (47.0-73.0); PLATELET COUNT AUTOMATED 210 10*3/uL (130-400); RED BLOOD COUNT 2.98 10*6/uL (4.10-5.10); RED CELL DISTRI WIDTH 14.6 % (0-14.5); WHITE BLOOD COUNT 6.2 10*3/uL (4.8-10.8)
[2017-08-18 06:28] LABS: ALBUMIN 2.6 gm/dl (3.1-4.5); PHOSPHOROUS 3.8 mg/dL (2.5-4.9); POTASSIUM 5.3 mmol/L (3.5-5.1)
[2017-08-18 08:00] VITALS: BP 158/90
[2017-08-18 12:00] VITALS: BP 150/80
[2017-08-18] MEDS ORDERED: AMLODIPINE BESY10 MG PO (15:35)
[2017-08-18] MEDS ORDERED: 'CLONIDINE0.1 MG PO (15:35)
[2017-08-18 16:00] VITALS: BP 172/98
[2017-08-18 20:00] VITALS: BP 158/82
[2017-08-19] VITALS: BP 126/75
[2017-08-19 08:00] VITALS: BP 162/65
[2017-08-19 08:41] LABS: BASO # 0.1 10*3/uL (0.0-0.1); BASO % 1.1 % (0.0-1.0); EOS # 0.6 10*3/uL (0.0-0.4); EOS % 8.8 % (1.0-4.0); HEMATOCRIT 26.3 % (37.0-47.0); HEMOGLOBIN 7.9 g/dl (12.0-16.0); LYMPH % 15.8 % (27.0-41.0); MEAN CORPUSCULAR HGB 27.3 pg (27.0-31.0); MEAN PLATELET VOLUME 9.3 fl (9.6-12.3); MONO # 0.6 10*3/uL (0.1-1.0); MONO % 9.9 % (3.0-9.0); NEUT # 4.1 10*3/uL (2.3-7.9); NEUT % 64.1 % (47.0-73.0); PLATELET COUNT AUTOMATED 199 10*3/uL (130-400); RED BLOOD COUNT 2.89 10*6/uL (4.10-5.10); RED CELL DISTRI WIDTH 14.6 % (0-14.5); WHITE BLOOD COUNT 6.5 10*3/uL (4.8-10.8)
[2017-08-19 08:47] LABS: ALBUMIN 2.5 gm/dl (3.1-4.5); CREATININE 3.9 mg/dL (0.55-1.02); PHOSPHOROUS 4.2 mg/dL (2.5-4.9); POTASSIUM 5.4 mmol/L (3.5-5.1)
== END 2017-08-19 17:00 | disposition home or self-care (01) | DRG 683 ==
LOC: ED 15:42 → 5E 17:13 → EDHOLD 17:13 → 5E 17:53
PROVIDERS: Family Medicine; Internal Medicine; Student in an Organized Health Care Education/Training Program
PROC: 30233N1 Transfusion of Nonautologous Red Blood Cells into Peripheral Vein, Percutaneous Approach (ICD-10-PCS; principal; 2017-08-16)
DX: N17.0 Acute kidney failure with tubular necrosis (principal); I13.0 Hypertensive heart and chronic kidney disease with heart failure and stage 1 through stage 4 chronic kidney disease, or unspecified chronic kidney disease; E11.22 Type 2 diabetes mellitus with diabetic chronic kidney disease; I50.32 Chronic diastolic (congestive) heart failure; Z68.41 Body mass index [BMI] 40.0-44.9, adult; E83.41 Hypermagnesemia; N18.4 Chronic kidney disease, stage 4 (severe); E87.5 Hyperkalemia; J44.9 Chronic obstructive pulmonary disease, unspecified; I87.2 Venous insufficiency (chronic) (peripheral); D72.810 Lymphocytopenia; E11.65 Type 2 diabetes mellitus with hyperglycemia; D63.8 Anemia in other chronic diseases classified elsewhere; K59.00 Constipation, unspecified; E78.5 Hyperlipidemia, unspecified; E66.01 Morbid (severe) obesity due to excess calories; F41.9 Anxiety disorder, unspecified; M19.90 Unspecified osteoarthritis, unspecified site; G51.0 Bell's palsy; Z96.643 Presence of artificial hip joint, bilateral; Z87.891 Personal history of nicotine dependence; Z83.3 Family history of diabetes mellitus; Z79.4 Long term (current) use of insulin; Z90.49 Acquired absence of other specified parts of digestive tract; Z82.49 Family history of ischemic heart disease and other diseases of the circulatory system; Z83.79 Family history of other diseases of the digestive system; Z88.1 Allergy status to other antibiotic agents; Z88.8 Allergy status to other drugs, medicaments and biological substances; Z79.899 Other long term (current) drug therapy

== ENCOUNTER → 2017-08-16 | Outpatient (CLI) | payer MEDICARE, MEDICAID ==
[~2017-08-16] MED LIST changes: +'CLONIDINE0.1 MG PO; +AMLODIPINE BESY10 MG PO
[2017-08-16 14:14] LABS: HEMATOCRIT 23.5 % (37.0-47.0)
[2017-08-16 14:32] LABS: CREATININE 4.19 mg/dL (0.55-1.02); POTASSIUM 5.2 mmol/L (3.5-5.1)
[2017-08-16 15:57] LABS: VITAMIN D, 25-HYDROXY 34.2 ng/mL (30-100)
[2017-08-16 15:58] LABS: FERRITIN 87.6 ng/mL (10.0-291.0); PTH INTACT 205.6 pg/mL (14.0-72.0)
[2017-08-17 06:10] LABS: TOTAL PROTEIN, SERUM 6.1 g/dL (6.0-8.5)
[2017-08-17 14:06] LABS: ALPHA-1-GLOBULIN 0.3 g/dL (0.0-0.4); ALPHA-2-GLOBULIN 0.7 g/dL (0.4-1.0); BETA GLOBULIN 0.8 g/dL (0.7-1.3); GAMMA GLOBULIN 1.2 g/dL (0.4-1.8); GLOBULIN, TOTAL 3.1 g/dL (2.2-3.9); M-SPIKE Comment: g/dL (Not Observed)
== END | disposition home or self-care (01) ==
LOC: LAB 01:45 → WOUNDCARE 01:45
PROVIDERS: Internal Medicine Nephrology
DX: N18.4 Chronic kidney disease, stage 4 (severe) (principal); E55.9 Vitamin D deficiency, unspecified; D64.9 Anemia, unspecified

== ENCOUNTER 2017-08-29 12:21 | Emergency (ER) | payer MEDICARE, MEDICAID ==
[~2017-08-29] VITALS: Ht 165.1 cm; Wt 158.8 kg
[~2017-08-29 12:21] MED LIST changes: +'CLONIDINE0.1 MG PO; +AMLODIPINE BESY10 MG PO
[2017-08-29 14:15] VITALS: BP 145/59
== END 2017-08-29 15:03 | disposition short-term general hospital (02) ==
LOC: ED 12:21
DX: S82.391A Other fracture of lower end of right tibia, initial encounter for closed fracture (principal); M19.90 Unspecified osteoarthritis, unspecified site; I13.0 Hypertensive heart and chronic kidney disease with heart failure and stage 1 through stage 4 chronic kidney disease, or unspecified chronic kidney disease; E11.22 Type 2 diabetes mellitus with diabetic chronic kidney disease; N18.4 Chronic kidney disease, stage 4 (severe); I50.9 Heart failure, unspecified; J44.9 Chronic obstructive pulmonary disease, unspecified; E66.9 Obesity, unspecified; Z68.42 Body mass index [BMI] 45.0-49.9, adult; Z98.890 Other specified postprocedural states; Z90.49 Acquired absence of other specified parts of digestive tract; Z88.2 Allergy status to sulfonamides; Z88.5 Allergy status to narcotic agent; Z88.6 Allergy status to analgesic agent; Z79.4 Long term (current) use of insulin; Z79.899 Other long term (current) drug therapy; X50.1XXA Overexertion from prolonged static or awkward postures, initial encounter; Y93.89 Activity, other specified; Y92.89 Other specified places as the place of occurrence of the external cause; Y99.9 Unspecified external cause status

== ENCOUNTER 2017-11-13 11:27 | Inpatient (IN) | payer MEDICARE, MEDICAID ==
[~2017-11-13] VITALS: Ht 165.1 cm; Wt 109.1 kg
[2017-11-13] VITALS (11 sets, daily range): BP systolic 105–138; BP diastolic 44–98
--- NOTE | ~2017-11-13 | PR ---
[place], [place] PROGRESS NOTE NAME: [facility]OTT [facility] [id number] UNIT #: [id number] ROOM: 529 DOCTOR: SAI BORGES,STEPHANI De León BIRTHDATE: [birth year] DOS: NEPHROLOGY NOTE The patient was not available. I came to see her a few times and she was off the floor. I did review her labs from today. Her hemoglobin was 7.8, white count of 8.4, sodium 138, potassium 5.0, CO2 of 14, BUN 102, creatinine 5.9, albumin of 2.8. Intact parathyroid hormone level was 336. Medications were reviewed. The patient is receiving a bicarbonate infusion. She currently has advanced chronic kidney disease and will need dialysis. A tunneled dialysis catheter is pending. Once this is placed, we will begin with renal replacement therapy. For now, continue bicarbonate infusion and continue supportive care. STEPHANI GIBBS MD CM:PNTRANS [id number] STEPHANI GIBBS MD 11/15/17 0034 interface
--- NOTE | ~2017-11-13 | PR ---
[place], [place] PROGRESS NOTE NAME: ZAYRA MOTT UNIT #: [id number] ROOM: 529 DOCTOR: STEPHANI GIBBS MD BIRTHDATE: [birth year] DOS: 11/16/2017 SUBJECTIVE: The patient was seen and examined. She had a dialysis catheter placed yesterday, but unfortunately it was not tunneled. She continues to state that I want to go home, I want to go home. She states she is going home tomorrow. I explained that it is not likely this is going to happen. The patient is being very difficult despite family explaining to her that her importance of staying in the hospital. She denied shortness of breath, nausea or vomiting. PHYSICAL EXAMINATION: VITAL SIGNS: Showed temperature 98.7, pulse 86, respiration rate 20, blood pressure 153/66. HEENT: Shows no JVD. LUNGS: Diminished breath sounds with no wheeze. HEART: S1, S2. No rub. ABDOMEN: Soft, nontender. EXTREMITIES: Positive edema. SKIN: Showed no rash. LABORATORY DATA: Hemoglobin 8.1, white count 11.4, platelets 175. Sodium 135, potassium 4.1, CO2 of 22, BUN 98, creatinine 5.9, glucose 100, calcium 7.1. ASSESSMENT AND PLAN: 1. Likely new end-stage renal disease. The patient will have her first dialysis session today. We will plan for treatment again for 2-1/2 hours tomorrow. We will potentially plan for another treatment on Monday. Unfortunately, the patient will need a temporary dialysis catheter placed. She will need a tunneled dialysis catheter ideally prior to her discharge. She will need social service work to arrange for outpatient hemodialysis. 2. Anemia. Transfuse as needed. We will initiate erythropoietin stimulating agents with dialysis. 3. Hyperphosphatemia. Dialysis should help correct this. She will eventually need a binder with meals. 4. Hypertension. Continue medications. 5. Metabolic acidosis. This is improving. Stop the IV fluids. 6. Secondary hyperparathyroidism. Her PTH is acceptable. She will likely require activated vitamin D during dialysis at some point. [place], [place] PROGRESS NOTE NAME: ZAYRA MOTT UNIT #: [id number] ROOM: 529 DOCTOR: STPEHANI GIBBS MDTE: 65 STEPHANI GIBBS MD CM:PNTRANS [phone] STEPHANI GIBBS MD 11/16/171956 interface
--- NOTE | ~2017-11-13 | PR ---
[place], [place] PROGRESS NOTE [id number] UNIT #: [id number] ROOM: 529 DOCTOR: STEPHANI GIBBS MD BIRTHDATE: [birth year] DOS: NEPHROLOGY FOLLOWUP NOTE SUBJECTIVE: The patient was seen and examined. She is awake and alert. She was on nasal cannula. Apparently, she has refused her tunneled dialysis catheter earlier. It seems she is more understanding and is willing to proceed even to have it done today, so we can proceed with dialysis tomorrow. She is having diarrhea and actually had a bowel movement in bed and was asking to be cleaned. Her significant other was at the bedside. He seems supportive and understands that she needs dialysis today and also has concerns about her discharge plans and realizes that she will need to go to a intermediate facility. PHYSICAL EXAMINATION: VITAL SIGNS: Showed temperature 98.1, pulse 67, respirations 18, and blood pressure 110/51. HEENT: Shows no JVD. LUNGS: Diminished breath sounds with no wheeze. HEART: S1, S2. No rub, thrill or gallop. ABDOMEN: Soft, nontender. EXTREMITIES: Had positive edema. SKIN: Showed no overt rash. LABORATORY DATA: From today showed a hemoglobin of 7.4, white count of 9.0, and platelets 163. Sodium 137, potassium 4.2, CO2 of 20, BUN 100, creatinine 6.2, calcium 7.6, phosphorus 5.7, and albumin of 2.5. IMPRESSION: 1. Stage 5 chronic kidney disease, likely now new end stage renal disease. The patient will require dialysis. It seems she is agreeable for dialysis to start tomorrow. We will attempt to try to have the tunneled dialysis catheter placed today. We will plan for a 2-hour treatment tomorrow and likely another treatment on Monday and possibly Monday. We would recommend discontinuing the IV fluids at this point. Dose meds for dialysis. 2. Anemia. We would transfuse as felt needed. The patient will receive erythropoietin stimulating agents with dialysis. 3. Hyperphosphatemia. Her phosphorus is elevated. Dialysis should help correct this. She eventually will need a binder with meals. 4. Hypertension. Continue medications. 5. Metabolic acidosis. This has been improving with bicarbonate infusion. As stated can discontinue the fluids for now. We will correct her acidosis with dialysis. 6. Secondary hyperparathyroidism. Her PTH is acceptable. We will likely administer activated vitamin D therapy during dialysis. The primary service was at bedside as well and plans were discussed. [place], [place] PROGRESS NOTE NAME: ZAYRA MOTT UNIT #: [id number] ROOM: 529 DOCTOR: STEPHANI GIBBS MD BIRTHDATE: [birth year] STEPHANI GIBBS MD CM:PNTRANS [phone] STEPHANI GIBBS MD 11/16/17 0151 interface
--- NOTE | ~2017-11-13 | PR ---
[place], [place] PROGRESS NOTE NAME: ZAYRA MOTT UNIT #: [id number] ROOM: 529 DOCTOR: SHADI QUINTERO DO BIRTHDATE: [birth year] DOS: 11/19/2017 RENAL PROGRESS NOTE SUBJECTIVE: The patient offers no complaints today. Continues to state that she wants to know when she can go home. No orthopnea, PND or dyspnea and reportedly eating well. No reports of nausea, vomiting, diarrhea. PHYSICAL EXAMINATION: VITAL SIGNS: Blood pressure is 177/68, pulse 78, respiratory rate 16, temperature 98.2 degrees Fahrenheit. GENERAL APPEARANCE: Obese female, sleepy, but easily arousable today. NECK: No JVD is present. LUNGS: Clear to auscultation and percussion. HEART: Regular without S3 or rub appreciated. ABDOMEN: Soft, positive bowel sounds x 4. EXTREMITIES: No clubbing or cyanosis. There is no edema appreciated. SKIN: Warm and dry. LABORATORY DATA: Today, WBCs are 8.4, hemoglobin 9.3, hematocrit 29.9, platelets 103,000. Sodium 137, potassium 3.7, chloride 102, CO2 of 29, BUN 31, creatinine 2.46, glucose is 64, phosphorus 2.4, calcium 7.1, albumin of 2.4, corrected calcium is 8.4. ASSESSMENT: 1. End-stage renal disease. Currently, volume status and electrolytes are satisfactory, tentatively scheduled for placement of a tunneled dialysis catheter tomorrow. 2. Anemia. Hemoglobin and hematocrit are stable. 3. Hypertension. Blood pressure under satisfactory control. RECOMMENDATIONS: Await tunneled dialysis catheter placement tomorrow, could be discharged to home from my perspective after tunneled dialysis catheter is placed as long as outpatient dialysis arrangements and transportation have been made. [place], [place] PROGRESS NOTE NAME: ZAYRA MOTT UNIT #: [id number] ROOM: 529 DOCTOR: SHADI QUINTERO DO BIRTHDATE: [birth year] SHADI QUINTERO DO CM:PNTRANS [phone] SHADI QUINTERO DO 11/20/17 0249 interface
--- NOTE | ~2017-11-13 | PR ---
[place], [place] PROGRESS NOTE [id number] UNIT #: [id number] ROOM: 529 DOCTOR: SHADI QUINTERO DO BIRTHDATE: [birth year] DOS: 11/17/2017 RENAL PROGRESS NOTE SUBJECTIVE: The patient underwent her second dialysis treatment today and tolerated it well. She offers no complaints, but continues to state that she wants to go home. She denies orthopnea, PND or dyspnea. States she is eating well. PHYSICAL EXAMINATION: VITAL SIGNS: Blood pressure is 153/77, pulse 75, respiration 20, temperature 97.9 degrees. GENERAL APPEARANCE: An obese female, awake, alert, no apparent distress. HEENT: Conjunctivae are pink and moist. Oxygen in place. Temporary dialysis catheter in the right IJ. LUNGS: Clear to auscultation and percussion. HEART: Regular without S3 or rub appreciated. No murmur is currently appreciated. ABDOMEN: Soft, positive bowel sounds x 4. EXTREMITIES: No clubbing or cyanosis. There is trace edema noted. SKIN: Warm and dry. No rashes are appreciated. LABORATORY DATA: From today, WBC is 11.5, hemoglobin 7.7, hematocrit 24.1, platelet count is 154,000. Sodium was 139, potassium 3.7, chloride 103, CO2 of 27, BUN of 70, creatinine 4.42, glucose is 117, calcium is 7.1. ASSESSMENT AND PLAN: 1. End-stage renal disease. Currently, volume status appears to be satisfactory. Electrolytes with the exception of uncorrected calcium are all satisfactory. She has completed her second dialysis treatment today. She will be receiving dialysis on a Monday, , Monday basis as an outpatient at [facility]. She has a temporary dialysis catheter in place. She will need to have a tunneled dialysis catheter placed before she can be discharged. Unfortunately, Interventional Radiology is not available until 11/20/2017. 2. Anemia. Hemoglobin and hematocrit is decreased today and has been fluctuating to a degree. She is receiving erythropoietin-stimulating agents with dialysis. 3. Hypertension. Blood pressure is under satisfactory control. RECOMMENDATIONS: We will plan on dialysis again on 11/18/2017 and we will run it for 3-1/2 hours at 350 blood flow rate. Check followup labs in the morning. Thank you for allowing us to participate in care of this patient. [place], [place] PROGRESS NOTE NAME: ZAYRA MOTT [place] UNIT #: [id number] ROOM: 529 DOCTOR: SHADI QUINTERO DO BIRTHDATE: [birth year] SHADI QUINTERO DO CM:ADDISON [id number] SHADI QUINTERO DO 11/18/17 0517 interface
--- NOTE | ~2017-11-13 | PR ---
[place], [place] PROGRESS NOTE NAME: ZAYRA MOTT UNIT #: [id number] ROOM: 529 DOCTOR: INGRID LOPEZSHADI BIRTHDATE: [birth year] DOS: 11/18/2017 SUBJECTIVE: The patient underwent dialysis today and tolerated the treatment well. Continues to ask when she can be discharged. This is persistent and repeated question. She notes her appetite is good. Does have several bowel movements, but denies any diarrhea. Denies any vomiting. PHYSICAL EXAMINATION: VITAL SIGNS: Blood pressure is 150/62, pulse 76, respirations 20, temperature 98 degrees Fahrenheit. GENERAL: Obese female, awake, alert, oriented x 3. HEAD AND NECK: Conjunctivae pink and moist. There is no JVD appreciated. LUNGS: Clear to auscultation and percussion. HEART: Regular. No S3 or rub. ABDOMEN: Soft, positive bowel sounds x 4. EXTREMITIES: No clubbing, cyanosis, no edema noted. LABORATORY DATA: Today, hemoglobin 9.8, hematocrit 31.3, WBC is 8.1 with platelets of 137,000. Sodium is 142, potassium 3.1, chloride 108, CO2 of 26, BUN 37, creatinine 2.57, glucose is 89, calcium uncorrected is 6.0. ASSESSMENT AND PLAN: 1. End-stage renal disease, now dialysis dependent. Volume status is satisfactory. Electrolytes notable for low potassium and low calcium. These are decreased from yesterday's values for unclear reasons. Reported again frequent BMs, but no diarrhea and reported eating well. 2. Hypertension. Blood pressure is adequately control. 3. Anemia. Hemoglobin and hematocrit are initially noted to be 6.1 and 20.0 on the night. This morning rechecked at 9.8 and 31.3 post dialysis today. After receiving a unit of packed red blood cells, response was greater than expected. Additionally we are going to check chemistries this evening and supplement her potassium and supplement calcium if does indicated. Await placement of tunneled dialysis catheter and time of her schedule is on 11/20/2017. 4. Hemodialysis, will be scheduled for 11/21/2017. [place], [place] PROGRESS NOTE NAME: ZAYRA MOTT UNIT #: [id number] ROOM: 529 DOCTOR: SHADI QUINTERO DO BIRTHDATE: [birth year] SHADI QUINTERO DO CM:ADDISON [id number] SHADI QUINTERO DO 11/30/17 0745 interface
--- NOTE | ~2017-11-13 | CON ---
[place], [place] REPORT OF CONSULTATION NAME: ZAYRA MOTT [facility] WITH [facility] #: [id number] UNIT #: [id number] ROOM: 529 DOCTOR: JEFFREY, PHD LOPEZ BIRTHDATE: [birth year] DOS: 11/15/2017 HISTORY OF PRESENT ILLNESS: The patient is a 52-year-old female referred by Dr. Zaidi for a competency evaluation. At the present time, this patient is on a medical floor at [facility]. She lives at home with her mother and fiance. She is not employed. Alcohol and drug use were denied. The patient is a former smoker. PAST MEDICAL HISTORY: Significant for anxiety, arthritis, Veronica's palsy, congestive heart failure, COPD, chronic renal disease stage 4, closed tibial fracture, hypertension, insulin-dependent diabetes, kyphoscoliosis, lichen planus, obesity. CURRENT MEDICATIONS: Include insulin, folic acid, Feosol, vitamin D, Norvasc, Protonix, Humalog, Apresoline, Catapres, Coreg, heparin, DuoNeb. PHYSICAL EXAMINATION: The patient was awake, alert and oriented to person and place. She could not provide the date. She denies any suicidal ideation or plan. She does have a mental health history, but is not receiving treatment currently. The patient perseverated about concerns related to surgery and staying in the hospital and was difficult to redirect. She declined to answer any demographic questions, but was able to name a few major medical conditions she is experiencing. She initially did not appear to appreciate the risks associated with declining surgery to initiate dialysis, but later upon further discussion with medical staff decided to proceed with the surgery due to the serious nature of her health. In my opinion, the patient is competent to make informed health care decisions. After further discussion with the medical staff, she appeared to appreciate the serious nature of her need for dialysis. DIAGNOSIS: Anxiety disorder, unspecified. RECOMMENDATIONS: In my opinion, the patient is competent to make informed health care decisions. Thank you very much for this consult. Angella Vickers, PhD CM:CONSTR:REPORT OF CONSULTATION 1649 11/16/17 0504 interface
--- NOTE | ~2017-11-13 | PR ---
[place], [place] PROGRESS NOTE NAME: ZAYRA MOTT UNIT #: [id number] ROOM: 529 DOCTOR: RADHA LYNN DPM BIRTHDATE: [birth year] DOS: 11/21/2017 ADDENDUM I attested resident's note. The resident was with me when the patient was seen and I agree with the resident's note. RADHA LYNN DPM CM:ADDISON [phone] [id number] RADHA LYNN DPM 12/01/17 0954 interface
[2017-11-13 11:57] LABS: BASO % 0.3 % (0.0-1.0); EOS % 0.4 % (1.0-4.0); HEMATOCRIT 23.5 % (37.0-47.0); HEMOGLOBIN 6.8 g/dl (12.0-16.0); LYMPH # 1.1 10*3/uL (1.3-4.4); LYMPH % 9.8 % (27.0-41.0); MEAN CELL VOLUME 90.4 fl (81.0-99.0); MEAN CORPUSCULAR HGB 26.2 pg (27.0-31.0); MEAN CORPUSCULAR HGB CONC 28.9 g/dl (33.0-37.0); MEAN PLATELET VOLUME 9.2 fl (9.6-12.3); MONO # 0.7 10*3/uL (0.1-1.0); MONO % 6.7 % (3.0-9.0); NEUT # 8.7 10*3/uL (2.3-7.9); NEUT % 81.8 % (47.0-73.0); PLATELET COUNT AUTOMATED 167 10*3/uL (130-400); WHITE BLOOD COUNT 10.7 10*3/uL (4.8-10.8)
[2017-11-13 12:16] LABS: ALBUMIN 2.8 gm/dl (3.1-4.5); CREATININE 5.69 mg/dL (0.55-1.02); TOTAL PROTEIN 6.4 gm/dL (6.4-8.2); TROPONIN I 0.016 ng/ml (<0.045)
[2017-11-13 12:18] LABS: POTASSIUM 6.2 mmol/L (3.5-5.1)
[2017-11-13] MEDS ORDERED: CLONIDINE0.2 MG PO (16:09)
[2017-11-13] MEDS ORDERED: COREG6.25 MG PO (16:09)
[2017-11-13] MEDS ORDERED: LOSARTAN POTAS100 MG PO (16:09)
[2017-11-13] MEDS ORDERED: LASIX40 MG PO (16:12)
[2017-11-13] MEDS ORDERED: PROVENTIL HFA6.7 GM INH (16:15)
[2017-11-13] MEDS ORDERED: NOVOLOG 70/30 M10 ML SC ×2 (16:17→16:18)
[2017-11-14] VITALS: BP 140/73
[2017-11-14 00:08] LABS: HEMATOCRIT 27.5 % (37.0-47.0); HEMOGLOBIN 8.3 g/dl (12.0-16.0)
[2017-11-14 06:40] LABS: BASO % 0.5 % (0.0-1.0); EOS # 0.1 10*3/uL (0.0-0.4); EOS % 1.6 % (1.0-4.0); HEMATOCRIT 26.1 % (37.0-47.0); HEMOGLOBIN 7.8 g/dl (12.0-16.0); LYMPH # 1.4 10*3/uL (1.3-4.4); LYMPH % 17.1 % (27.0-41.0); MEAN CELL VOLUME 89.4 fl (81.0-99.0); MEAN CORPUSCULAR HGB 26.7 pg (27.0-31.0); MEAN CORPUSCULAR HGB CONC 29.9 g/dl (33.0-37.0); MEAN PLATELET VOLUME 9.3 fl (9.6-12.3); MONO # 0.7 10*3/uL (0.1-1.0); MONO % 8.4 % (3.0-9.0); NEUT % 71.4 % (47.0-73.0); PLATELET COUNT AUTOMATED 161 10*3/uL (130-400); RED BLOOD COUNT 2.92 10*6/uL (4.10-5.10); RED CELL DISTRI WIDTH 15.9 % (0-14.5); WHITE BLOOD COUNT 8.4 10*3/uL (4.8-10.8)
[2017-11-14 06:57] LABS: ALBUMIN 2.8 gm/dl (3.1-4.5); CREATININE 5.94 mg/dL (0.55-1.02)
[2017-11-14 07:00] LABS: PHOSPHOROUS 5.9 mg/dL (2.5-4.9); TOTAL PROTEIN 6.1 gm/dL (6.4-8.2)
[2017-11-14 07:04] LABS: INTERNATIONAL NORM RATIO 1.3 (2.0-3.5)
[2017-11-14 07:48] LABS: FERRITIN 102.9 ng/mL (10.0-291.0); VITAMIN D, 25-HYDROXY 21.8 ng/mL (30-100)
[2017-11-14 08:00] VITALS: BP 119/55
[2017-11-14 12:00] VITALS: BP 118/50
[2017-11-14 16:00] VITALS: BP 103/49
[2017-11-14 20:00] VITALS: BP 129/70
[2017-11-15] VITALS (7 sets, daily range): BP systolic 110–152; BP diastolic 51–70
[2017-11-15 14:05] LABS: BASO % 0.3 % (0.0-1.0); EOS # 0.1 10*3/uL (0.0-0.4); EOS % 0.9 % (1.0-4.0); HEMATOCRIT 23.4 % (37.0-47.0); HEMOGLOBIN 7.4 g/dl (12.0-16.0); LYMPH # 1.1 10*3/uL (1.3-4.4); LYMPH % 12.3 % (27.0-41.0); MEAN CORPUSCULAR HGB 27.5 pg (27.0-31.0); MEAN CORPUSCULAR HGB CONC 31.6 g/dl (33.0-37.0); MEAN PLATELET VOLUME 9.2 fl (9.6-12.3); MONO # 0.7 10*3/uL (0.1-1.0); MONO % 7.8 % (3.0-9.0); NEUT % 78.3 % (47.0-73.0); PLATELET COUNT AUTOMATED 163 10*3/uL (130-400); RED BLOOD COUNT 2.69 10*6/uL (4.10-5.10); RED CELL DISTRI WIDTH 15.7 % (0-14.5)
[2017-11-15 14:11] LABS: ALBUMIN 2.5 gm/dl (3.1-4.5); CREATININE 6.17 mg/dL (0.55-1.02); PHOSPHOROUS 5.7 mg/dL (2.5-4.9); POTASSIUM 4.2 mmol/L (3.5-5.1)
[2017-11-16] VITALS: BP 153/66
[2017-11-16 08:04] LABS: BASO % 0.4 % (0.0-1.0); EOS # 0.2 10*3/uL (0.0-0.4); EOS % 1.5 % (1.0-4.0); HEMATOCRIT 26.2 % (37.0-47.0); HEMOGLOBIN 8.1 g/dl (12.0-16.0); LYMPH # 1.4 10*3/uL (1.3-4.4); LYMPH % 12.1 % (27.0-41.0); MEAN CELL VOLUME 85.6 fl (81.0-99.0); MEAN CORPUSCULAR HGB 26.5 pg (27.0-31.0); MEAN CORPUSCULAR HGB CONC 30.9 g/dl (33.0-37.0); MEAN PLATELET VOLUME 8.8 fl (9.6-12.3); MONO # 0.7 10*3/uL (0.1-1.0); MONO % 5.9 % (3.0-9.0); NEUT # 9.1 10*3/uL (2.3-7.9); NEUT % 79.7 % (47.0-73.0); PLATELET COUNT AUTOMATED 175 10*3/uL (130-400); RED BLOOD COUNT 3.06 10*6/uL (4.10-5.10); RED CELL DISTRI WIDTH 15.4 % (0-14.5); WHITE BLOOD COUNT 11.4 10*3/uL (4.8-10.8)
[2017-11-16 08:40] LABS: POTASSIUM 4.1 mmol/L (3.5-5.1)
[2017-11-16 08:41] LABS: CREATININE 5.88 mg/dL (0.55-1.02)
[2017-11-16 16:00] VITALS: BP 165/85
[2017-11-16 20:00] VITALS: BP 169/71
[2017-11-17] VITALS: BP 153/77
[2017-11-17 08:07] LABS: BASO % 0.3 % (0.0-1.0); EOS # 0.1 10*3/uL (0.0-0.4); EOS % 0.6 % (1.0-4.0); HEMATOCRIT 24.1 % (37.0-47.0); HEMOGLOBIN 7.7 g/dl (12.0-16.0); LYMPH # 1.3 10*3/uL (1.3-4.4); LYMPH % 10.9 % (27.0-41.0); MEAN CELL VOLUME 86.1 fl (81.0-99.0); MEAN CORPUSCULAR HGB 27.5 pg (27.0-31.0); MONO % 8.3 % (3.0-9.0); NEUT # 9.1 10*3/uL (2.3-7.9); NEUT % 79.6 % (47.0-73.0); PLATELET COUNT AUTOMATED 154 10*3/uL (130-400); RED CELL DISTRI WIDTH 15.3 % (0-14.5); WHITE BLOOD COUNT 11.5 10*3/uL (4.8-10.8)
[2017-11-17 08:17] LABS: INTERNATIONAL NORM RATIO 1.3 (2.0-3.5)
[2017-11-17 08:19] LABS: CREATININE 4.42 mg/dL (0.55-1.02); POTASSIUM 3.7 mmol/L (3.5-5.1)
[2017-11-17 09:08] LABS: HEPATITIS B SURFACE AG Negative (Negative); HEPATITIS C VIRUS ANTIBODY <0.1 s/co (0.0-0.9)
[2017-11-17 16:00] VITALS: BP 144/65
[2017-11-17 20:00] VITALS: BP 147/98
[2017-11-18] VITALS: BP 123/49
[2017-11-18 08:51] LABS: CREATININE 2.57 mg/dL (0.55-1.02); POTASSIUM 3.1 mmol/L (3.5-5.1)
[2017-11-18 09:22] LABS: BASO % 0.1 % (0.0-1.0); EOS # 0.1 10*3/uL (0.0-0.4); EOS % 1.7 % (1.0-4.0); HEMOGLOBIN 6.1 g/dl (12.0-16.0); LYMPH # 1.2 10*3/uL (1.3-4.4); LYMPH % 15.1 % (27.0-41.0); MEAN CELL VOLUME 88.1 fl (81.0-99.0); MEAN CORPUSCULAR HGB 26.9 pg (27.0-31.0); MEAN CORPUSCULAR HGB CONC 30.5 g/dl (33.0-37.0); MEAN PLATELET VOLUME 9.5 fl (9.6-12.3); MONO # 0.9 10*3/uL (0.1-1.0); MONO % 10.4 % (3.0-9.0); NEUT # 5.9 10*3/uL (2.3-7.9); NEUT % 72.2 % (47.0-73.0); PLATELET COUNT AUTOMATED 137 10*3/uL (130-400); RED BLOOD COUNT 2.27 10*6/uL (4.10-5.10); RED CELL DISTRI WIDTH 15.1 % (0-14.5); WHITE BLOOD COUNT 8.1 10*3/uL (4.8-10.8)
[2017-11-18 13:06] LABS: HEMATOCRIT 31.3 % (37.0-47.0); HEMOGLOBIN 9.8 g/dl (12.0-16.0)
[2017-11-18 13:54] VITALS: BP 150/62
[2017-11-18 16:00] VITALS: BP 148/79
[2017-11-18 17:18] LABS: ALBUMIN 2.4 gm/dl (3.1-4.5); CREATININE 2.27 mg/dL (0.55-1.02); POTASSIUM 3.6 mmol/L (3.5-5.1)
[2017-11-18 20:00] VITALS: BP 155/73
[2017-11-19] VITALS: BP 116/61
[2017-11-19 06:48] LABS: BASO % 0.5 % (0.0-1.0); EOS # 0.2 10*3/uL (0.0-0.4); EOS % 2.6 % (1.0-4.0); HEMATOCRIT 29.9 % (37.0-47.0); HEMOGLOBIN 9.3 g/dl (12.0-16.0); LYMPH # 1.4 10*3/uL (1.3-4.4); MEAN CELL VOLUME 86.9 fl (81.0-99.0); MEAN CORPUSCULAR HGB CONC 31.1 g/dl (33.0-37.0); MEAN PLATELET VOLUME 9.2 fl (9.6-12.3); MONO % 12.1 % (3.0-9.0); NEUT # 5.7 10*3/uL (2.3-7.9); NEUT % 67.3 % (47.0-73.0); PLATELET COUNT AUTOMATED 103 10*3/uL (130-400); RED BLOOD COUNT 3.44 10*6/uL (4.10-5.10); RED CELL DISTRI WIDTH 15.1 % (0-14.5); WHITE BLOOD COUNT 8.4 10*3/uL (4.8-10.8)
[2017-11-19 07:29] LABS: ALBUMIN 2.4 gm/dl (3.1-4.5); POTASSIUM 3.7 mmol/L (3.5-5.1)
[2017-11-19 07:32] LABS: CREATININE 2.46 mg/dL (0.55-1.02); PHOSPHOROUS 2.4 mg/dL (2.5-4.9)
[2017-11-19 08:00] VITALS: BP 172/68
[2017-11-19 16:00] VITALS: BP 143/68
[2017-11-19 20:00] VITALS: BP 150/81
[2017-11-20] VITALS (13 sets, daily range): BP systolic 121–188; BP diastolic 60–86
[2017-11-20 06:20] LABS: BASO % 0.6 % (0.0-1.0); EOS # 0.2 10*3/uL (0.0-0.4); EOS % 2.8 % (1.0-4.0); HEMATOCRIT 31.7 % (37.0-47.0); HEMOGLOBIN 9.5 g/dl (12.0-16.0); LYMPH # 1.2 10*3/uL (1.3-4.4); LYMPH % 16.7 % (27.0-41.0); MEAN CELL VOLUME 88.5 fl (81.0-99.0); MEAN CORPUSCULAR HGB 26.5 pg (27.0-31.0); MEAN PLATELET VOLUME 9.8 fl (9.6-12.3); MONO # 0.8 10*3/uL (0.1-1.0); MONO % 11.4 % (3.0-9.0); NEUT # 4.9 10*3/uL (2.3-7.9); NEUT % 67.9 % (47.0-73.0); PLATELET COUNT AUTOMATED 117 10*3/uL (130-400); RED BLOOD COUNT 3.58 10*6/uL (4.10-5.10); RED CELL DISTRI WIDTH 14.7 % (0-14.5); WHITE BLOOD COUNT 7.2 10*3/uL (4.8-10.8)
[2017-11-20 06:46] LABS: CREATININE 2.76 mg/dL (0.55-1.02); POTASSIUM 4.2 mmol/L (3.5-5.1)
[2017-11-21] VITALS: BP 148/76
[2017-11-21 08:00] VITALS: BP 160/77
[2017-11-21 08:52] LABS: BASO % 0.6 % (0.0-1.0); EOS # 0.2 10*3/uL (0.0-0.4); EOS % 2.8 % (1.0-4.0); HEMATOCRIT 29.4 % (37.0-47.0); HEMOGLOBIN 8.8 g/dl (12.0-16.0); LYMPH # 0.9 10*3/uL (1.3-4.4); LYMPH % 13.3 % (27.0-41.0); MEAN CELL VOLUME 88.6 fl (81.0-99.0); MEAN CORPUSCULAR HGB 26.5 pg (27.0-31.0); MEAN CORPUSCULAR HGB CONC 29.9 g/dl (33.0-37.0); MEAN PLATELET VOLUME 9.5 fl (9.6-12.3); MONO # 0.7 10*3/uL (0.1-1.0); MONO % 10.6 % (3.0-9.0); NEUT # 4.9 10*3/uL (2.3-7.9); NEUT % 72.3 % (47.0-73.0); PLATELET COUNT AUTOMATED 118 10*3/uL (130-400); RED BLOOD COUNT 3.32 10*6/uL (4.10-5.10); RED CELL DISTRI WIDTH 14.6 % (0-14.5); WHITE BLOOD COUNT 6.7 10*3/uL (4.8-10.8)
[2017-11-21 09:16] LABS: CREATININE 2.87 mg/dL (0.55-1.02); POTASSIUM 4.6 mmol/L (3.5-5.1)
[2017-11-21 12:00] VITALS: BP 144/67
[2017-11-21 16:00] VITALS: BP 164/70
[2017-11-21 20:00] VITALS: BP 164/66
[2017-11-22] VITALS: BP 151/73
[2017-11-22 06:23] LABS: BASO % 0.5 % (0.0-1.0); EOS # 0.2 10*3/uL (0.0-0.4); EOS % 3.5 % (1.0-4.0); HEMATOCRIT 28.4 % (37.0-47.0); HEMOGLOBIN 8.4 g/dl (12.0-16.0); LYMPH % 17.6 % (27.0-41.0); MEAN CELL VOLUME 90.2 fl (81.0-99.0); MEAN CORPUSCULAR HGB 26.7 pg (27.0-31.0); MEAN CORPUSCULAR HGB CONC 29.6 g/dl (33.0-37.0); MEAN PLATELET VOLUME 9.8 fl (9.6-12.3); MONO # 0.6 10*3/uL (0.1-1.0); MONO % 11.3 % (3.0-9.0); NEUT # 3.8 10*3/uL (2.3-7.9); NEUT % 66.6 % (47.0-73.0); PLATELET COUNT AUTOMATED 97 10*3/uL (130-400); RED BLOOD COUNT 3.15 10*6/uL (4.10-5.10); RED CELL DISTRI WIDTH 14.5 % (0-14.5); WHITE BLOOD COUNT 5.7 10*3/uL (4.8-10.8)
[2017-11-22 06:47] LABS: CREATININE 2.14 mg/dL (0.55-1.02); POTASSIUM 4.4 mmol/L (3.5-5.1)
[2017-11-22 08:00] VITALS: BP 162/84
== END 2017-11-22 15:42 | disposition home or self-care (01) | DRG 683 ==
LOC: ED 11:27 → EDHOLD 12:43 → 5E 12:43
PROVIDERS: Family Medicine; Internal Medicine; Internal Medicine Nephrology; Nurse Practitioner Family; Student in an Organized Health Care Education/Training Program
PROC: 30233N1 Transfusion of Nonautologous Red Blood Cells into Peripheral Vein, Percutaneous Approach (ICD-10-PCS; principal; 2017-11-13)
PROC: B244ZZZ Ultrasonography of Right Heart (ICD-10-PCS; 2017-11-15)
PROC: B2141ZZ Fluoroscopy of Right Heart using Low Osmolar Contrast (ICD-10-PCS; 2017-11-15)
PROC: 02H633Z Insertion of Infusion Device into Right Atrium, Percutaneous Approach (ICD-10-PCS; 2017-11-15)
PROC: 5A1D70Z Performance of Urinary Filtration, Intermittent, Less than 6 Hours Per Day (ICD-10-PCS; 2017-11-16)
PROC: 5A1D70Z Performance of Urinary Filtration, Intermittent, Less than 6 Hours Per Day (ICD-10-PCS; 2017-11-17)
PROC: 5A1D70Z Performance of Urinary Filtration, Intermittent, Less than 6 Hours Per Day (ICD-10-PCS; 2017-11-18)
PROC: 02HV33Z Insertion of Infusion Device into Superior Vena Cava, Percutaneous Approach (ICD-10-PCS; 2017-11-20)
PROC: 5A1D70Z Performance of Urinary Filtration, Intermittent, Less than 6 Hours Per Day (ICD-10-PCS; 2017-11-21)
DX: N17.0 Acute kidney failure with tubular necrosis (principal); I13.2 Hypertensive heart and chronic kidney disease with heart failure and with stage 5 chronic kidney disease, or end stage renal disease; L89.152 Pressure ulcer of sacral region, stage 2; E44.0 Moderate protein-calorie malnutrition; E11.22 Type 2 diabetes mellitus with diabetic chronic kidney disease; E87.2 Acidosis; M41.9 Scoliosis, unspecified; E66.01 Morbid (severe) obesity due to excess calories; E87.1 Hypo-osmolality and hyponatremia; Z68.42 Body mass index [BMI] 45.0-49.9, adult; N18.6 End stage renal disease; N25.81 Secondary hyperparathyroidism of renal origin; D63.1 Anemia in chronic kidney disease; E87.8 Other disorders of electrolyte and fluid balance, not elsewhere classified; B37.2 Candidiasis of skin and nail; D72.810 Lymphocytopenia; F41.9 Anxiety disorder, unspecified; J44.9 Chronic obstructive pulmonary disease, unspecified; I50.9 Heart failure, unspecified; E87.5 Hyperkalemia; E86.0 Dehydration; I87.2 Venous insufficiency (chronic) (peripheral); E21.3 Hyperparathyroidism, unspecified; L85.3 Xerosis cutis; G51.0 Bell's palsy; Z96.643 Presence of artificial hip joint, bilateral; M19.90 Unspecified osteoarthritis, unspecified site; D64.9 Anemia, unspecified; X58.XXXD Exposure to other specified factors, subsequent encounter; Z82.49 Family history of ischemic heart disease and other diseases of the circulatory system; Z88.5 Allergy status to narcotic agent; Z88.2 Allergy status to sulfonamides; Z88.9 Allergy status to unspecified drugs, medicaments and biological substances; Z90.49 Acquired absence of other specified parts of digestive tract; Z79.4 Long term (current) use of insulin; Z87.81 Personal history of (healed) traumatic fracture; Z79.899 Other long term (current) drug therapy; S82.301G Unspecified fracture of lower end of right tibia, subsequent encounter for closed fracture with delayed healing

== ENCOUNTER 2018-05-24 13:38 | Inpatient (IN) | payer MEDICARE, MEDICAID ==
[~2018-05-24] VITALS: Ht 162.5 cm; Wt 92.7 kg
--- NOTE | ~2018-05-24 | EKG ---
[place], [place] ELECTROCARDIOGRAM REPORT NAME: ZAYRA MOTT UNIT #: [id number] ROOM: 428 DOCTOR: ELISABETH DRAFT REPORT BIRTHDATE: [birth year] [facility] Test Date: 2018-05-25 Test Time: 17:54:11 Pat Name: ZAYRA MOTT Department: Room: [facility] 1 Gender: F Filament Maker: 18 : 1965 Requested By: RHETT CUENCA Order Number: [id number] Reading MD: Harvinder Carrion MD Measurements Intervals [place] Rate: 99 P: DC: QRS: -54 QRSD: 83 T: 18 QT: 364 QTc: 468 Interpretive Statements Atrial fibrillation Ventricular premature complex Abnormal R-wave progression, late transition Electronically Signed On 05-28-2018 21:02:36 PST by Harvinder Carrion MD CM:EKGRPT:ELECTROCARDIOGRAM REPORT 1754 01 RHETT HARRIS DRAFT REPORT RHETT CUENCA DO
--- NOTE | ~2018-05-24 | PR ---
[place], [place] PROGRESS NOTE NAME: ZAYRA MOTT [facility] #: [id number] UNIT #: [id number] ROOM: 428 DOCTOR: GRAHAM SANCHES MD BIRTHDATE: [birth year] DOS: 05/28/2018 CARDIOLOGY PROGRESS NOTE The patient was seen at her bedside today with her significant other in attendance. She is a 53-year-old woman with end-stage renal disease and diabetes, who is on dialysis. She was admitted to the hospital on this occasion because of a malfunctioning tunneled catheter. The catheter was replaced by Interventional Radiology. Subsequently, she was noted to be in atrial fibrillation. It is not clear that she had sinus rhythm before the procedure. I have reviewed all of the monitor strips that are available and she has been in atrial fibrillation since the monitor was initiated. All the recordings in the hospital indicate atrial fibrillation. She does have electrocardiograms from last 10/2017, which did show sinus rhythm, but we do not have any other records since then. The patient appears to be unaware of her atrial fibrillation. On one hand, she says she can feel it, but on the other hand, she states that it does bother her. I did discuss cardioversion with her and her significant other. She does not want to have any more procedures done and states that all she wants to do is go home. PHYSICAL EXAMINATION: VITAL SIGNS: Today, her pulse is 75 and irregularly irregular. Blood pressure is 110/60. She is afebrile. NECK: Supple. She has no jugular distention. Carotids are full. LUNGS: Respirations are unlabored. Her chest has decreased breath sounds at the bases, but no wheezes or rales. HEART: Has an irregularly irregular rhythm. There are no murmurs or gallops. ABDOMEN: Obese. EXTREMITIES: Showed chronic stasis changes and no edema. The monitor shows atrial fibrillation with a controlled ventricular response. Heart rate has been around 80-90 since she has been on the monitor after her catheter revision. IMPRESSION: 1. Newly documented atrial fibrillation. 2. End-stage renal disease, on dialysis. 3. Diabetes mellitus, on insulin. 4. Chronic diastolic heart failure. 5. Hypertension. PLAN: I spent about 20 minutes discussing her cardiac options with her and her significant other. It seems to me that since she is not symptomatic from her atrial fibrillation and is maintaining controlled vital signs that there is really no strong indication for atrial fibrillation, cardioversion. Whether she is in sinus rhythm or in atrial fibrillation, she will likely require anticoagulation. Her rate has been easily controlled with metoprolol. She is very sedentary and this does not change her quality of life. In addition, [place], [place] PROGRESS NOTE NAME: ZAYRA MOTT UNIT #: [id number] ROOM: 428 DOCTOR: MYRON BORGES,GRAHAM BIRTHDATE: [birth year] cannot guarantee that she will stay in sinus rhythm even when she has been cardioverted. I therefore think that continued management with rate control and anticoagulation is appropriate. In any case, the patient told me that she did not want to have a cardioversion done. We will review her echocardiogram when it is available, but think that she probably could be discharged to home later today. From my perspective, she can have her meal and no longer needs to be n.p.o. I thank the hospitalist physicians for asking our advice regarding her care. GRAHAM SANCHES MD CM:PNTRANS [id number] GRAHAM SANCHES MD 05/29/18 1348 interface
--- NOTE | ~2018-05-24 | PR ---
[place], [place] PROGRESS NOTE [facility]: [id number] UNIT #: [id number] ROOM: 428 DOCTOR: STEPHANI GIBBS MD BIRTHDATE: [birth year] DOS: 05/27/2018 NEPHROLOGY FOLLOWUP NOTE SUBJECTIVE: The patient was seen and examined. She is awake and alert. She was disappointed, she has to stay in the hospital. It seems she underwent a tunneled dialysis catheter changed and went into atrial fibrillation and remains in the hospital. She is being evaluated by Cardiology. She denied chest pain, fevers or chills. PHYSICAL EXAMINATION: VITAL SIGNS: Temperature 98.1, pulse 78, respiration 20, blood pressure 168/97. HEENT: Shows no JVD. LUNGS: Diminished breath sounds with no wheeze. HEART: S1, S2. No rub. ABDOMEN: Soft, nontender. There is no organomegaly. EXTREMITIES: Showed +2 edema. LABORATORY DATA: From yesterday, potassium 4.2, BUN 24, creatinine 2.2, hemoglobin 10.0, white count of 5.1 and platelets 164. ASSESSMENT AND PLAN: 1. End-stage renal disease. The patient is on hemodialysis, Monday and through a tunneled dialysis catheter. The patient's TDC was malfunctioning and this has been replaced. Her next treatment will be on Monday. 2. Atrial fibrillation. Management per the primary service and Cardiology. 3. Anemia of chronic disease. We will give ESAs as needed. 4. Diabetes, on insulin. 5. Hypertension. Continue meds from a renal standpoint. She is acceptable for discharge. STEPHANI GIBBS MD CM:PNTRANS [phone] STEPHANI GIBBS MD 05/27/18 1354 interface
--- NOTE | ~2018-05-24 | CON ---
[place], [place] REPORT OF CONSULTATION NAME: ZAYRA MOTT UNIT #: [id number] ROOM: 428 DOCTOR: KSENIA GONZALEZJIMMY BIRTHDATE: [birth year] DOS: 05/25/2018 PODIATRY CONSULT. SUBJECTIVE: This patient is seen as consulted for evaluation of second and third toe. Apparently, she has some scabs on the toes. She is unaware of any recent trauma or injury. She does have a history of a closed distal right tibial fracture that occurred in August of last year and we have been following her in the office. The majority of the fracture is healed and she has recently started physical therapy at home. PAST MEDICAL HISTORY: Positive for anemia of chronic disease; anxiety; arthritis; Veronica's palsy; CHF; COPD; closed tibial fracture; end-stage renal disease, on dialysis; hypertension; hyperparathyroidism; hyponatremia; insulin-dependent diabetes mellitus; morbid obesity; history of venous insufficiency. ALLERGIES: SULFA, ALPRAZOLAM, CODEINE, and NAPROXEN. CURRENT MEDICATIONS: Include Protonix, Apresoline, Humalog, Percocet, folic acid, Catapres, Coreg, Norvasc, Zofran, Colace, [place]. OBJECTIVE: On lower extremity physical examination, pedal pulses are palpable. Chronic pigment changes and dependent edema noted bilaterally consistent with chronic venous insufficiency. Negative Homans sign bilaterally. No pain at the right distal tibia, right ankle area. There is some decreased muscle strength noted bilaterally. The distal tip of the right second and third toes has a well demarcated eschars which appear to be dried areas of blood blister. No gangrenous tissue was noted. No open wound, no edema or erythema about the toe. No drainage. ASSESSMENT: Blister distal tip right second and third toe noninfected, not open; diabetes mellitus; history of right tibial fractures. PLAN: Consult is performed. Recommend keeping pressure off of those areas. No wound care dressing is needed. We will continue to follow the toes while she is in the hospital and no treatment is needed for the right ankle while in house. Thank you for the opportunity to take part in care of this patient. [place], [place] REPORT OF CONSULTATION NAME: ZAYRA MOTT UNIT #: [id number] ROOM: [facility] DOCTOR: JIMMY MCCORMACK DPM BIRTHDATE: [birth year] JIMMY MCCORMACK DPM CM:CONSTR:REPORT OF CONSULTATION 1211 05/25/18 1227 interface
[~2018-05-24 13:38] MED LIST changes: +CLONIDINE0.2 MG PO; +COREG6.25 MG PO; +LASIX40 MG PO; +LOSARTAN POTAS100 MG PO; +PROVENTIL HFA6.7 GM INH
[2018-05-24 13:55] VITALS: BP 163/82
[2018-05-24 14:07] LABS: BASO # 0.1 10*3/uL (0.0-0.1); EOS # 0.2 10*3/uL (0.0-0.4); EOS % 3.1 % (1.0-4.0); HEMATOCRIT 35.4 % (37.0-47.0); HEMOGLOBIN 10.8 g/dl (12.0-16.0); LYMPH # 1.2 10*3/uL (1.3-4.4); LYMPH % 22.3 % (27.0-41.0); MEAN CELL VOLUME 88.5 fl (81.0-99.0); MEAN CORPUSCULAR HGB CONC 30.5 g/dl (33.0-37.0); MEAN PLATELET VOLUME 9.2 fl (9.6-12.3); MONO # 0.5 10*3/uL (0.1-1.0); MONO % 9.4 % (3.0-9.0); NEUT # 3.3 10*3/uL (2.3-7.9); NEUT % 63.8 % (47.0-73.0); PLATELET COUNT AUTOMATED 210 10*3/uL (130-400); RED CELL DISTRI WIDTH 17.1 % (0-14.5); WHITE BLOOD COUNT 5.2 10*3/uL (4.8-10.8)
--- NOTE | 2018-05-24 14:09 | NUR ---
PT NEEDED ADDITIONAL COACHING TO GET UNDRESSED WITH THE ASSISTANCE OF SIGNIFICANT OTHER. PT REQUESTS TO HOLD HER RADHA BEAR WHILE BEING CHANGED. REFUSING TO TAKE OFF HER PANTS. LABS OBTAINED AND SENT. NO DISTRESS NOTED.
[2018-05-24 14:14] LABS: INTERNATIONAL NORM RATIO 1.2 (2.0-3.5)
[2018-05-24 14:21] LABS: CREATININE 2.76 mg/dL (0.55-1.02); POTASSIUM 4.9 mmol/L (3.5-5.1); TOTAL PROTEIN 7.4 gm/dL (6.4-8.2)
--- NOTE | 2018-05-24 14:53 | NUR ---
ATTEMPTED TO TAKE OFF PANTS, PT SMELLS OF URINE AND TEACHING PROVIDED TO PT AND SIGNIFICANT OTHER. PT REFUSED. UNKNOWN IF ANY WOUNDS ON PT. PT NON COMPLAINT.
[2018-05-24 15:00] VITALS: BP 155/96
--- NOTE | 2018-05-24 15:00 | NUR ---
Time: 1500 A 53 year old FEMALE admitted to under services of ROXANA GOFF DO. Pt. arrived via wheel chair from ER. Chief complaint: MECHANICAL COMPLICATION OF CHRONIC KIDNEY DISEASE. DEANN ADAME
--- NOTE | 2018-05-24 15:15 | NUR ---
LATE ENTRY 1420-WARM BLANKETS PROVIDED. NO DISTRESS NOTED. ALERT. SKIN WARM AND DRY. RESPIRAITONS EVEN AND UNLABORED. LS DIMISHED. 1445 RIGHT FOOT 2ND DIGIT. BLACK IN COLOR. REFUSED THIS NURSE TO ASSESS LEFT FOOT STATING THAT WE JUST HURT HER. FAMILY AND DRS AT BEDSIDE TEACHING ALONG WITH THIS RN. NO EVIDANCE OF LEARNING. PT REFUING.
--- NOTE | 2018-05-24 15:21 | NUR ---
PT ARRIVED TO FLOOR SCREAMING AND NONCOMPLIANT WITH ALLOWING ANYONE TO REMOVE HER PANTS AND SOCKS. AFTER MUCH ENCOURAGEMENT AND EMOTIONAL SUPPORT MYSELF AND THREE AIDS MANAGED TO REMOVE HER SOCKS AND PANTS. PT AGITATED AND CRYING, REFUSED TO ALLOW MEASUREMENTS. REFUSED TO ALLOW PHOTOS. BUT NOTED AREAS OF SCABS/WOUNDS TO TOES OF RIGHT FOOT.I ALSO NOTED BLE EDEMA,SCALY,FLAKY,PALE, SHINY SKIN ENCOMPASSING BOTH BLE.
[2018-05-24] MEDS ORDERED: DOCUSATE SOD100 MG PO (15:38)
[2018-05-24] MEDS ORDERED: ZOFRAN4 MG PO (15:40)
[2018-05-24 16:00] VITALS: BP 155/96
--- NOTE | 2018-05-24 16:20 | NUR ---
PT REFUSED TO BE TRANSPORTED TO ULTRASOUND FOR US BLE.WE WILL REATTEMPT AT LATER TIME.
--- NOTE | 2018-05-24 16:31 | NUR ---
NOTIFIED DR ESQUEDA OF NEW CONSULT FOR WOUND ON 2ND AND 3RD TOE. NOTIFIED HIM OF SEVERELY SCALY BLE.ORDER RECIEVED.
--- NOTE | 2018-05-24 16:34 | NUR ---
NOTIFIED DR RAMOS ANSWERING SERVICE OF CONSULT FOR ESRD ON HD.
--- NOTE | 2018-05-24 17:10 | NUR ---
PT REFUSES TO TRANSPORT TO ULTRASOUND FORE US BLE FOR SECOND TIME. NOTIFIED DR GONZALEZ. WILL REATTEMPT TOMORROW PER DR GONZALEZ.
--- NOTE | 2018-05-24 18:00 | NUR ---
NOTIFIED [facility] RN, LAMAR, PT BE PUT ON [facility] DIALYSIS SCHEDULE FOR DIALYSIS TOMORROW FOLLOWING TESSIO CATH REPLACEMENT WITH DR HAMPTON.
--- NOTE | 2018-05-24 18:19 | NUR ---
ROMER[place]O GIVING PER PT REQUEST FOR RIGHT LEG PAINRATED A / AND DESCRIBED A SHARP STABBING PAIN. CALL LIGHT WITHIN REACH. WILL CONTINUE TO MONITORT AND REASSESS.
[2018-05-24 20:00] VITALS: BP 162/90
[2018-05-25] VITALS (9 sets, daily range): BP systolic 110–184; BP diastolic 66–101
--- NOTE | 2018-05-25 03:35 | NUR ---
Crying, yelling, about all interactions. Requested R foot and leg to be rubbed. Requested and medicated with Tylenol at 2049 for complaints of throbbing leg pain, rated a 8-9/10. Requested and medicated with [place] at 0 for complaints of continued leg pain in R leg stating Tylenol ineffective. Yelling, crying and upset concerning need for 0000 vitals, stating you don't understand I'm afraid of this. [place] effective to decrease pain and allow to rest quietly. Refusing bath prior to this, will attempt later. Will continue to monitor.
--- NOTE | 2018-05-25 05:03 | NUR ---
ZAYRA MOTT [place] [id number] Please refer to the physician's history and physical for past medical history, comorbid conditions, and allergies. Diagnosis: CHRONIC KIDNEY DISEASE MECHANICAL COMPLICATION OF Lexx Score: 13,MODERATE RISK WOUND DESCRIPTIONS: Location of the wound: right 3rd toe Type of wound: unstageable Thickness: Full Size: 0.6cm x 1.6cm x <0.1cm Tunneling: none Undermining: none Sinus Tract: none Presence of Exudate: none Amount: None Color: Black Odor: None Periwound Skin Appearance: hyperkeratotic tissue noted Wound edges: approximated Pain (associated with wound): pt complaining of right foot and calf pain How does patient state this happened? pt unsure when these areas started and boyfriend is unaware stated had areas for a while Location of the wound: right 3rd toe Type of wound: unstageable Thickness: Full Size: 0.3cm x 0.4cm x <0.1cm Tunneling: none Undermining: none Sinus Tract: none Presence of Exudate: none Amount: None Color: Black Odor: None Periwound Skin Appearance: hyperkeratotic tissue noted Wound edges: approximated Pain (associated with wound): pt complaining of right foot and calf pain How does patient state this happened? pt unsure when these areas started and boyfriend is unaware stated had areas for a while Location of the wound: left 5th toe Type of wound: unstageable Thickness: Full Size: 0.3cm x 0.4cm x <0.1cm Tunneling: none Undermining: none Sinus Tract: none Presence of Exudate: none Amount: None Color: Red, brown Odor: None Periwound Skin Appearance: hyperkeratotic tissue noted Wound edges: approximated Pain (associated with wound): none at time of assessment How does patient state this happened? pt unsure when these areas started and boyfriend is unaware stated had areas for a while Location of the wound: sacrum Type of wound: stage 2 Thickness: Partial Size: 0.4cm x 0.2cm x 0.1cm Tunneling: none Undermining: none Sinus Tract: none Presence of Exudate: Serosanguineous Amount: Light Color: Red Odor: None Periwound Skin Appearance: Scar Wound edges: approximated Pain (associated with wound): none at time of assessment How does patient state this happened? pt unable to state how this happened Patient's bilateral breasts have foul odor noted red satellite lesion noted. Patient stated she uses powder at home for this and always has this. Patient stated she used to follow in the wound care center as well as followed with podiatry. She states she doesn't feel that she needs treatment once she is discharge. Surface the patient is resting on: Isoflex SKIN PREVENTION RECOMMENDATION: 1. Pressure redistribution support surface as appropriate 2. Elevate heels 3. Remove boots/TEDS every shift and reapply 4. Head of bed 30 degrees as tolerated 5. Assess nutrition and hydration 6. Manage moisture 7. Avoid the use of containment devices while in bed 8. Use absorptive products on surfaces limit layers of linens on bed 9. Turn and reposition every 1-2 hours in bed and every 1 hour in chair as tolerated 10. Weight shifts every 15 minutes while up in chair 11. Offloading with pillows or device to keep heels elevated off bed 12. Monitor skin at least every shift 13. Inspect under medical devices twice a day WOUND TREATMENT RECOMMENDATIONS: Stage 2 guidelines: Cleanse sacrum with nss and apply sureprep around the wound therahoney to wound bed and cover with optifoam gentle. wheelchair cushion when oob. Heel raiser pro boots while in bed. Cleanse BLE's with soap and water and apply lac-hydrin bid. Apply sureprep to right 2nd, right 3rd, and left 5th toe and cover with bandaid. Cleanse bilateral breasts with soap and water and apply nystatin powder every 8 hours then apply abd pad to maintain the moisture.
--- NOTE | 2018-05-25 05:12 | NUR ---
Complete bath given, skin accessed, lower legs and feet, dry scaly bilaterally. Aquaphor applied. 0.4 x 0.2 area to top of sacrum, stage 2. Right foot 2nd and 3rd toes with blackened areas, and bottom of 5th toe on Left foot blackened.
[2018-05-25 06:28] LABS: BASO # 0.1 10*3/uL (0.0-0.1); BASO % 1.2 % (0.0-1.0); EOS # 0.2 10*3/uL (0.0-0.4); EOS % 4.5 % (1.0-4.0); HEMATOCRIT 35.7 % (37.0-47.0); HEMOGLOBIN 10.7 g/dl (12.0-16.0); LYMPH # 0.7 10*3/uL (1.3-4.4); LYMPH % 13.3 % (27.0-41.0); MEAN CELL VOLUME 89.7 fl (81.0-99.0); MEAN CORPUSCULAR HGB 26.9 pg (27.0-31.0); MEAN PLATELET VOLUME 9.6 fl (9.6-12.3); MONO # 0.5 10*3/uL (0.1-1.0); MONO % 9.4 % (3.0-9.0); NEUT # 3.6 10*3/uL (2.3-7.9); NEUT % 71.2 % (47.0-73.0); PLATELET COUNT AUTOMATED 185 10*3/uL (130-400); RED BLOOD COUNT 3.98 10*6/uL (4.10-5.10); RED CELL DISTRI WIDTH 16.7 % (0-14.5); WHITE BLOOD COUNT 5.1 10*3/uL (4.8-10.8)
[2018-05-25 06:53] LABS: ALBUMIN 2.9 gm/dl (3.1-4.5); CREATININE 2.92 mg/dL (0.55-1.02); PHOSPHOROUS 4.6 mg/dL (2.5-4.9); POTASSIUM 4.7 mmol/L (3.5-5.1); TOTAL PROTEIN 7.1 gm/dL (6.4-8.2)
--- NOTE | 2018-05-25 08:48 | NUR ---
Dr. Barbour notified of wound care recommendations.
--- NOTE | 2018-05-25 10:00 | NUR ---
PT COMPLAINING OF PAIN TO HER BLE, SCREAMING OUT WHEN TOUCHED BY STAFF IN ANY WAY. PT YELLED AND SCREAMED WITH STAFF WHEN ATTEMPTING TO ASSESS BLOOD PRESSURE, STATING "IT HURTS SO BAD I CAN'T DO IT JUST STOP" ART MANAGER HOLDING PT HAND ATTEMPTING TO CALM. THIS NURSE GAVE 1:1 AND INSTRUCTED FOR SLOW BREATHING AND TO WORK THROUGH HER ANXIETY. PT TOLERATED ART MANAGER TO TOUCH HER SKIN TO "RUB HER FEET" WHEN THIS NURSE ATTEMPTED TO APPLY AQUAPHOR TO AREAS PT SCREAMED OUT. GIVEN NORCO FOR PAIN AT THIS TIME.
--- NOTE | 2018-05-25 11:30 | NUR ---
PT CONTINUES TO COMPLAIN OF PAIN. NEW ORDERS RECEIVED AT THIS TIME. PT WEEPING AND YELLING OUT. PT CONTINUES WITH NPO STATUS AT THIS TIME, NOTIFIED THAT HER PROCEDURE WOULD BE APPROX 1330. PT YELLED AT THIS NURSE " WHY SO LONG! I SHOULD OF BEEN IN HOURS AGO" REDIRECTION SUCESSFUL WITH ASSIST OF SPECIAL PROJECTS MANAGER.
--- NOTE | 2018-05-25 12:14 | NUR ---
Guard Chief in to talk to patient. Patient states lives at home with her fiance, Dereck, and her mother. There are 0 steps in the home. There is a wheelchair ramp. Physician: Dr. Kwasi Reed Pharmacy: [facility] services: currently has Susu RN/PT and would like to resume those services Patient's level of ADLs: MAX ASSIST Patient has working utilities: yes DME: O2 @ 4L nc, portable O2 tank, nebulizer, walker, BSC, wheelchair, mallika lift, O2 supplier [employer] Follow-up physician's appointment after d/c: will be made by the hospitalist nurse director upon discharge Does patient want to access PORTAL?: no Discharge plan discussed with patient and Dereck, her fiance, who is at the bedside. She lives at home with her fiance and her mother. She needs max assistance with her ADLs and gets around in a wheelchair. She currently has Susu RN/PT and would like to resume those services upon discharge. She is dialysis Monday and , chair time is 9:30 am, [facility] bus transports. When medically stable she will be discharged to home. ROGELIO HUGO
--- NOTE | 2018-05-25 12:48 | NUR ---
PT GIVEN MORPHINE IV AT 1208, TOLERATED WELL AT THIS TIME. PT SITTING WITH FAMILY PLAYING GAMES ON HER CELL PHONE, SMILING. MORPHINE EFFECTIVE AT THIS TIME. PT TO BE GIVEN HOC BY 2 STAFF MEMBERS DUE TO INCONTINENCE.
--- NOTE | 2018-05-25 13:14 | NUR ---
PT OFF UNIT TO SURGERY AT THIS TIME. FAMILY TO FOLLOW HER TO 3RD FLOOR.
--- NOTE | 2018-05-25 14:31 | NUR ---
Faxed resume HHC order to [facility].
--- NOTE | 2018-05-25 17:09 | NUR ---
PT MEDICATED WITH PERCOCET ORDERED FOR GEN PAIN IN DIALYSIS PT RATES PAIN 12/08 WILL MONITOR
--- NOTE | 2018-05-25 17:16 | NUR ---
ATTEMPTED TO PHONE PHYSICIAN REGARDING PATIENT WITH NO ANSWER.
--- NOTE | 2018-05-25 17:56 | NUR ---
DR RINCON AWARE OF CONSULT, NEW ORDERS RECEIVED. DR CUENCA UPDATED.
--- NOTE | 2018-05-25 21:00 | NUR ---
PATIENT GIVEN MORPHINE FOR ABD PAIN THAT HURTS REALLY BAD
[2018-05-26] VITALS: BP 132/88
--- NOTE | 2018-05-26 00:14 | NUR ---
PATIENT IS SLEEPING WITH EASY AND REGULAR RESPERS ON 3L O2 VIA NASAL MASK. NO S/S OF DISTRESS IS NOTED AT THIS TIME. CALL LIGHT IS WITHIN REACH. 0000 MEDICAION NOT GIVEN, SEE EMAR.
[2018-05-26 06:58] LABS: BASO # 0.1 10*3/uL (0.0-0.1); BASO % 1.2 % (0.0-1.0); EOS # 0.3 10*3/uL (0.0-0.4); HEMATOCRIT 33.2 % (37.0-47.0); LYMPH # 1.4 10*3/uL (1.3-4.4); LYMPH % 28.5 % (27.0-41.0); MEAN CELL VOLUME 89.7 fl (81.0-99.0); MEAN CORPUSCULAR HGB CONC 30.1 g/dl (33.0-37.0); MEAN PLATELET VOLUME 9.6 fl (9.6-12.3); MONO # 0.6 10*3/uL (0.1-1.0); MONO % 12.5 % (3.0-9.0); NEUT # 2.7 10*3/uL (2.3-7.9); NEUT % 52.4 % (47.0-73.0); PLATELET COUNT AUTOMATED 164 10*3/uL (130-400); RED CELL DISTRI WIDTH 16.8 % (0-14.5); WHITE BLOOD COUNT 5.1 10*3/uL (4.8-10.8)
[2018-05-26 07:10] LABS: ALBUMIN 2.7 gm/dl (3.1-4.5); POTASSIUM 4.2 mmol/L (3.5-5.1)
[2018-05-26 07:13] LABS: CREATININE 2.18 mg/dL (0.55-1.02); TOTAL PROTEIN 6.8 gm/dL (6.4-8.2)
[2018-05-26 08:00] VITALS: BP 134/84
--- NOTE | 2018-05-26 09:09 | NUR ---
Zofran given for patient c/o N/V. Will monitor.
[2018-05-26 09:15] VITALS: BP 134/84
--- NOTE | 2018-05-26 09:45 | NUR ---
Zofran effective. Patient has no c/o N/V.
--- NOTE | 2018-05-26 13:30 | NUR ---
Patients mother was in to visit and I updated her on A-fib treatment and also patient refusing treatments today. Mother stated that her passed a few years ago and Allyn is her only child.
--- NOTE | 2018-05-26 15:50 | NUR ---
Patient requested Tylenol. Contacted Dr. Aly. See new orders,
[2018-05-26 16:00] VITALS: BP 142/76
--- NOTE | 2018-05-26 16:50 | NUR ---
Tylenol effective. Patient has no c/o pain.
[2018-05-26 20:00] VITALS: BP 150/76
--- NOTE | 2018-05-26 20:00 | NUR ---
TOOK OVER CARE OF PT. PT RESTING IN BED, HOB ELEVATED, EATING PEANUTS. TRAY TABLE COVERED WITH PEANUT BUTTER, CRACKERS, AND PEANUT SHELLS. ATTEMPTED TO OBTAIN IN IV SITE WITH 24G INTO LEFT HAND, UNSUCCESSFUL. PT REFUSES TO ALLOW NRUSES TO TRY AN IV SITE ANYWHERE BUT HER LEFT HAND BECAUSE "IT HURTS TOO MUCH ON MY ARMS AND RIGHT HAND". PHYSICIAN NOTIFIED OF THE ATTEMPTS MADE FOR AN IV SITE AND STATES THAT IT IS OKAY TO GIVE PT A BREAK AND THEN TO RETRY LATER ON IN THE EVENING. PT AWARE THAT WE WILL TRY AGAIN AT A LATER TIME TONIGHT AND IS AGREEABLE. BLOOD PRESSURE OBTAINED MANUALLY. PT HOLDS INFECTION CONTROL RN'S HAND WHILE OBTAINING BLOOD PRESSURE, STATING THAT IT HURTS TOO BAD TO HAVE BLOOD PRESSURE CHECKED. MANUAL BLOOD PRESSURE 148/80. HEART RATE IN 90S ON CLERICAL AIDE TEACHER, AFIB. WILL CONITNUE TO MONITOR. INFECTION CONTROL RN AT BEDSIDE. CALL LIGHT IN REACH.
--- NOTE | 2018-05-26 22:00 | NUR ---
HS MEDICATIONS TAKEN CRUSHED AND IN A MEDICINE CUP OF WATER, PER PT REQUEST. BLOOD SUGAR OBTAINED AND COVERAGE GIVEN PER SLIDING SCALE ORDERS. AQUAPHOR APPLIED TO PT BLE. PT FAMILY AT BEDSIDE. PT COOPERATIVE. 3L NASAL MASK IN PLACE. RESPIRATIONS EASY AND UNLABORED. CALL LIGHT IN REACH.
[2018-05-27] VITALS: BP 155/107
--- NOTE | 2018-05-27 06:57 | NUR ---
PT REFUSES LAB DRAWS AND REFUSES TO ALLOW NURSES TO ATTEMPT TO PUT AN IV SITE IN HER TODAY. PHYSICIAN AWARE.
[2018-05-27 08:00] VITALS: BP 168/96
[2018-05-27 12:00] VITALS: BP 150/88
[2018-05-27 16:00] VITALS: BP 152/93
--- NOTE | 2018-05-27 18:13 | NUR ---
PATIENT MEDICATED WITH NORCO AT THIS TIME FOR COMPLAINTS OF A HEADACHE AND STOMACH ACHE. WILL MONITOR FOR EFFECTIVENESS.
[2018-05-27 20:38] VITALS: BP 150/88
[2018-05-28] VITALS: BP 160/78
[2018-05-28 06:58] VITALS: BP 159/86
--- NOTE | 2018-05-28 07:00 | NUR ---
DR. WALKER NOTIFIED PT REFUSED LAB DRAW THIS MORNING.
[2018-05-28 08:00] VITALS: BP 110/60
--- NOTE | 2018-05-28 09:00 | NUR ---
Drum Stenciler in to see patient. No new needs or request at this time. When medically stable she will be discharged to home with the resumption of her [facility] services.
--- NOTE | 2018-05-28 09:42 | NUR ---
Transport up to take pt for [place]. Pt refused.
[2018-05-28 09:56] VITALS: BP 130/70
--- NOTE | 2018-05-28 10:33 | NUR ---
PHYSICAL THERAPY Possible d/c thia date. Thank you for this referral. Johanne Camargo,PT
[2018-05-28] MEDS ORDERED: Percocet 325 MG1 TAB PO (11:55)
[2018-05-28] MEDS ORDERED: ELIQUIS5 M1 PO (11:55)
[2018-05-28] MEDS ORDERED: LOPRESSOR25 MG PO (11:55)
--- NOTE | 2018-05-28 11:55 | NUR ---
Dressing changed to rt tessio at this time. Old dried bloody drainage noted on old dressing. No new bleeding to site. Area cleansed with cloraprep. New sterile dressing appled.
--- NOTE | 2018-05-28 11:58 | NUR ---
Spoke to Chetan Epps pharmacist at [phone] regarding cost of Eliquis 5 mg po BID. Cost will be $3.80. Becki Garcia notified.
--- NOTE | 2018-05-28 13:04 | NUR ---
Patient is being discharged to home, transportation scheduled for 3:30 pm with [facility] services in the front lobby. BILLIE Hernandez and patients boyfriend Dereck notified.
--- NOTE | 2018-05-28 14:28 | NUR ---
PT changed of depends that was saturated with urine. Pt did not want changed earlier. Encouraged pt to let us clean her off she at first refused this. Pt cleansed well of urine and dressed. Pt had mallika pad from home and we placed pt in her wheelchair at her request for dc at [facility] via [facility] transport. Pt refused any wound photos or for dressing to coccyx to be changed. It was intact. Awaiting transport, pt boyfriend at bedside.
--- NOTE | 2018-05-28 14:52 | NUR ---
Spoke to Mohit at [facility]. Patient is not current with them. Notified hospitalist nurse director.
--- NOTE | 2018-05-28 15:15 | NUR ---
PT taken out to front lobby for dc via transport to home.
--- NOTE | 2018-05-28 15:35 | NUR ---
Faxed [facility] referral
== END 2018-05-28 15:15 | disposition home or self-care (01) | DRG 314 ==
LOC: ED 13:38 → EDHOLD 14:35 → 4E 14:35
PROVIDERS: Emergency Medicine; Internal Medicine; Nurse Practitioner Family; ADMIT Internal Medicine
PROC: 05PYX3Z Removal of Infusion Device from Upper Vein, External Approach (ICD-10-PCS; principal; 2018-05-25)
PROC: 05HY33Z Insertion of Infusion Device into Upper Vein, Percutaneous Approach (ICD-10-PCS; principal; 2018-05-25)
PROC: B54MZZA Ultrasonography of Right Upper Extremity Veins, Guidance (ICD-10-PCS; principal; 2018-05-25)
DX: T82.49XA Other complication of vascular dialysis catheter, initial encounter (principal); N18.6 End stage renal disease; I50.32 Chronic diastolic (congestive) heart failure; E44.0 Moderate protein-calorie malnutrition; L89.892 Pressure ulcer of other site, stage 2; E66.01 Morbid (severe) obesity due to excess calories; F41.9 Anxiety disorder, unspecified; J44.9 Chronic obstructive pulmonary disease, unspecified; M41.9 Scoliosis, unspecified; D63.1 Anemia in chronic kidney disease; E11.65 Type 2 diabetes mellitus with hyperglycemia; Z96.643 Presence of artificial hip joint, bilateral; R11.2 Nausea with vomiting, unspecified; E21.3 Hyperparathyroidism, unspecified; E11.22 Type 2 diabetes mellitus with diabetic chronic kidney disease; M19.90 Unspecified osteoarthritis, unspecified site; E11.51 Type 2 diabetes mellitus with diabetic peripheral angiopathy without gangrene; M79.671 Pain in right foot; E55.9 Vitamin D deficiency, unspecified; I87.2 Venous insufficiency (chronic) (peripheral); I48.0 Paroxysmal atrial fibrillation; E11.610 Type 2 diabetes mellitus with diabetic neuropathic arthropathy; S90.424A Blister (nonthermal), right lesser toe(s), initial encounter; X58.XXXA Exposure to other specified factors, initial encounter; Y83.8 Other surgical procedures as the cause of abnormal reaction of the patient, or of later complication, without mention of misadventure at the time of the procedure; Y93.89 Activity, other specified; Y92.89 Other specified places as the place of occurrence of the external cause; Y99.8 Other external cause status; Z83.79 Family history of other diseases of the digestive system; Z83.3 Family history of diabetes mellitus; Z82.49 Family history of ischemic heart disease and other diseases of the circulatory system; Z79.4 Long term (current) use of insulin; Z99.2 Dependence on renal dialysis; Z88.2 Allergy status to sulfonamides; Z88.5 Allergy status to narcotic agent; Z88.6 Allergy status to analgesic agent; Z88.8 Allergy status to other drugs, medicaments and biological substances; Z90.49 Acquired absence of other specified parts of digestive tract; Z87.891 Personal history of nicotine dependence; Z79.899 Other long term (current) drug therapy; Z68.35 Body mass index [BMI] 35.0-35.9, adult

== ENCOUNTER 2019-02-05 09:05 | Emergency (ER) | payer MEDICARE, MEDICAID ==
[~2019-02-05] VITALS: Ht 165.1 cm
[~2019-02-05 09:05] MED LIST changes: +DOCUSATE SOD100 MG PO; +ELIQUIS5 M1 PO; +LOPRESSOR25 MG PO; +Percocet 325 MG1 TAB PO
[2019-02-05 09:47] VITALS: BP 127/72
[2019-02-05 11:12] LABS: BASO # 0.1 10*3/uL (0.0-0.1); BASO % 0.7 % (0.0-1.0); EOS # 1.5 10*3/uL (0.0-0.4); EOS % 17.4 % (1.0-4.0); HEMOGLOBIN 10.9 g/dl (12.0-16.0); LYMPH # 0.7 10*3/uL (1.3-4.4); LYMPH % 8.2 % (27.0-41.0); MEAN CELL VOLUME 89.6 fl (81.0-99.0); MEAN CORPUSCULAR HGB 26.4 pg (27.0-31.0); MEAN CORPUSCULAR HGB CONC 29.5 g/dl (33.0-37.0); MEAN PLATELET VOLUME 9.2 fl (9.6-12.3); MONO # 0.6 10*3/uL (0.1-1.0); MONO % 6.6 % (3.0-9.0); NEUT # 5.6 10*3/uL (2.3-7.9); NEUT % 66.5 % (47.0-73.0); PLATELET COUNT AUTOMATED 243 10*3/uL (130-400); RED BLOOD COUNT 4.13 10*6/uL (4.10-5.10); RED CELL DISTRI WIDTH 17.2 % (0-14.5); WHITE BLOOD COUNT 8.5 10*3/uL (4.8-10.8)
[2019-02-05 11:22] LABS: ACT PARTIAL THROMBO TIME 40.6 SECONDS (20.0-32.1); INTERNATIONAL NORM RATIO 1.2 (2.0-3.5)
[2019-02-05 11:26] LABS: ALBUMIN 2.8 gm/dl (3.1-4.5); CREATININE 4.22 mg/dL (0.55-1.02); POTASSIUM 5.1 mmol/L (3.5-5.1)
[2019-02-11] MEDS ORDERED: HYDROCODONE-AC1 EAC1 PO (18:55)
== END 2019-02-05 13:05 | disposition home or self-care (01) ==
LOC: ED 09:05
PROVIDERS: Physician Assistant
DX: T82.898A Other specified complication of vascular prosthetic devices, implants and grafts, initial encounter (principal); E11.22 Type 2 diabetes mellitus with diabetic chronic kidney disease; I13.2 Hypertensive heart and chronic kidney disease with heart failure and with stage 5 chronic kidney disease, or end stage renal disease; I50.9 Heart failure, unspecified; N18.6 End stage renal disease; J44.9 Chronic obstructive pulmonary disease, unspecified; Z88.2 Allergy status to sulfonamides; Z88.8 Allergy status to other drugs, medicaments and biological substances; Z88.5 Allergy status to narcotic agent; Z79.899 Other long term (current) drug therapy; Z79.4 Long term (current) use of insulin; Z90.49 Acquired absence of other specified parts of digestive tract; Y84.1 Kidney dialysis as the cause of abnormal reaction of the patient, or of later complication, without mention of misadventure at the time of the procedure; Y92.89 Other specified places as the place of occurrence of the external cause

== ENCOUNTER → 2019-02-11 | Day surgery (SDC) | payer MEDICARE, MEDICAID ==
[~2019-02-11] VITALS: Ht 165.1 cm; Wt 68.0 kg
[~2019-02-11] MED LIST changes: +HYDROCODONE-AC1 EAC1 PO
[2019-02-12 09:21] VITALS: BP 139/84
[2019-02-12 10:54] VITALS: BP 117/60
[2019-02-12 11:15] VITALS: BP 145/99
[2019-02-12 11:30] VITALS: BP 132/89
== END | disposition home or self-care (01) ==
LOC: SDC 02-06 01:03
DX: T82.898A Other specified complication of vascular prosthetic devices, implants and grafts, initial encounter (principal); I10 Essential (primary) hypertension; J45.909 Unspecified asthma, uncomplicated; E11.9 Type 2 diabetes mellitus without complications; F32.9 Major depressive disorder, single episode, unspecified; F41.9 Anxiety disorder, unspecified; Z96.643 Presence of artificial hip joint, bilateral; Z87.891 Personal history of nicotine dependence; Z88.8 Allergy status to other drugs, medicaments and biological substances; Z98.890 Other specified postprocedural states; Z79.899 Other long term (current) drug therapy; Z79.84 Long term (current) use of oral hypoglycemic drugs; Y83.8 Other surgical procedures as the cause of abnormal reaction of the patient, or of later complication, without mention of misadventure at the time of the procedure

== ENCOUNTER 2019-11-19 22:13 | Emergency (ER) | payer MEDICARE, MEDICAID ==
[~2019-11-19] VITALS: Ht 167.6 cm; Wt 127.0 kg
[2019-11-19 22:33] VITALS: BP 144/109
== END 2019-11-19 22:41 | disposition expired ==
LOC: ED 22:13
DX: I46.9 Cardiac arrest, cause unspecified (principal); M19.90 Unspecified osteoarthritis, unspecified site; I48.91 Unspecified atrial fibrillation; I13.2 Hypertensive heart and chronic kidney disease with heart failure and with stage 5 chronic kidney disease, or end stage renal disease; E11.22 Type 2 diabetes mellitus with diabetic chronic kidney disease; N18.6 End stage renal disease; J44.9 Chronic obstructive pulmonary disease, unspecified; E66.9 Obesity, unspecified; Z79.4 Long term (current) use of insulin; Z88.2 Allergy status to sulfonamides; Z88.8 Allergy status to other drugs, medicaments and biological substances; Z79.899 Other long term (current) drug therapy; Z68.42 Body mass index [BMI] 45.0-49.9, adult; Z87.891 Personal history of nicotine dependence; Z88.6 Allergy status to analgesic agent

== ENCOUNTER → 2019-11-19 | Outpatient (CLI) | payer MEDICARE, MEDICAID ==
[2019-11-19 10:18] LABS: ALBUMIN 2.6 gm/dl (3.1-4.5); BILIRUBIN, DIRECT 0.9 mg/dL (0.0-0.2); CREATININE 3.96 mg/dL (0.55-1.02); TOTAL PROTEIN 6.4 gm/dL (6.4-8.2)
[2019-11-19 10:24] LABS: FREE T4 1.08 ng/dl (0.76-1.46); THYROID STIM HORMONE (HS) 1.79 uIU/ml (0.358-4.75)
[2019-11-19 10:48] LABS: VITAMIN D, 25-HYDROXY 44.7 ng/mL (30-100)
== END | disposition home or self-care (01) ==
LOC: LAB 09:15
PROVIDERS: Internal Medicine
DX: E11.65 Type 2 diabetes mellitus with hyperglycemia (principal); E78.5 Hyperlipidemia, unspecified; E55.9 Vitamin D deficiency, unspecified; E04.9 Nontoxic goiter, unspecified; E11.40 Type 2 diabetes mellitus with diabetic neuropathy, unspecified; D50.9 Iron deficiency anemia, unspecified